=== PATIENT | female | born 1965 | race Caucasian/White ===

== ENCOUNTER 2016-06-04 07:07 | Emergency (ER) | payer BC ==
[2016-06-04 07:21] VITALS: BP 170/90
--- NOTE | 2016-06-04 08:06 | RAD ---
INDICATION: Left knee pain COMPARISON: None TECHNIQUE: AP, lateral, tunnel, and sunrise views were obtained. FINDINGS: There are no acute bony findings. There are several tiny ossific densities project into the joint space. Loose bodies are not excluded. IMPRESSION: NO ACUTE BONY CHANGE. POSSIBLE LOOSE BODIES.
--- NOTE | 2016-06-04 08:27 | UC ---
Vince Fletcher Matthew, scribed for GilbertoLito kincaid MD on 06/04/16 at 0755 . Knee Pain HPI - HPI Summary HPI Summary: Nurses Note: Left medial knee pain for "over a month". Patient states that when she stands up" I feel like there is a fluid mass on the side of my knee, and behind it." Pain upon initial standing and at bedtime, "it aches or throbbs". Patient supports behind the leg with a pillow. MD Note: Vital signs stable, BP noted at 170/90 pulse oxygen 98%, 5/10 left knee pain, throbbing, rare ETOH, non smoker, PMHx: HTN, lyme disease In Room Note: A 50 y/o presents to [facility] with gradually worsening left knee pain for months. The pain is rated 5/10 in severity and described as throbbing. Initially, in the morning the pain is located to the side of the knee and by the end of the day there is diffuse pain. She also notices localized fluid behind the knee by the end of the day. Her knees are unaffected by ambulating. The knee pain is worse by the end of the day. Her joints are also intermittent in pain from lyme disease. The patient has been seeing her PCP regularly and her BP has been well controlled there. FHx of HTN, CAD, and arthritis. - History of Current Complaint Chief Complaint: UCLowerExtremity Stated Complaint: KNEE COMPLAINT Time Seen by Provider: 06/04/16 07:12 Hx Obtained From: Patient Hx Last Menstrual Period: 05/30/16 ?: No Onset/Duration: Gradual Onset, Lasting Weeks, Still Present Severity Initially: Moderate Severity Currently: Moderate Location Of Injury: Left Knee Pain Intensity: 5 Pain Scale Used: 0-10 Numeric Character: Aching, Throbbing Associated Signs And Symptoms: Positive: Swelling Able to Bear Weight: Yes - Allergies/Home Medications Allergies/Adverse Reactions: Allergies Allergy/AdvReac Type Severity Reaction Status Date / Time cashews Allergy Severe Anaphylatic Uncoded 06/04/16 07:12 Shock PMH/Surg Hx/FS Hx/Imm Hx Endocrine History Of: Denies: Diabetes, Thyroid Disease Cardiovascular History Of: Reports: Hypertension Denies: Cardiac Disorders Respiratory History Of: Denies: COPD, Asthma GI/ History Of: Denies: Ulcer Cancer History Of: Denies: Breast Cancer - Surgical History Surgical History: Yes Surgery Procedure, Year, and Place: tubal ligation. T&A - Family History Known Family History: Positive: Cardiac Disease Family History: No FHx breast cancer - Social History Alcohol Use: Rare Substance Use Type: None Smoking Status (MU): Never Smoked Tobacco Have You Smoked in the Last Year: No - Immunization History Most Recent Influenza Vaccination: 2012 Most Recent Tetanus Shot: within five years Review of Systems Constitutional: Negative Skin: Negative Eyes: Negative ENT: Negative Respiratory: Negative Cardiovascular: Negative Gastrointestinal: Negative Genitourinary: Negative Motor: Negative Neurovascular: Negative Musculoskeletal: Arthralgia - Left Knee Pain Neurological: Negative Psychological: Negative All Other Systems Reviewed And Are Negative: Yes Physical Exam Triage Information Reviewed: Yes Appearance: Well-Appearing, No Pain Distress, Well-Nourished Vital Signs: Initial Vital Signs Temp 97.4 F 06/04/16 07:13 Pulse 85 06/04/16 07:13 Resp 16 06/04/16 07:13 BP 170/90 06/04/16 07:13 Pulse Ox 98 06/04/16 07:13 Vital Signs Reviewed: Yes Eyes: Positive: Conjunctiva Clear ENT: Positive: Hearing grossly normal, Pharynx normal, TMs normal. Negative: Muffled/hoarse voice Neck: Positive: Supple, Nontender Respiratory: Positive: Chest non-tender, Lungs clear, Normal breath sounds, No respiratory distress Cardiovascular: Positive: RRR, No Murmur Musculoskeletal: Positive: Other: - No redness, significant swelling, or pain over the left calf muscle; No gross instability of the left knee; Negative anterior drawer; MILD TENDERNESS OVER THE LEFT HAMSTRING TENDONS MEDIALLY, no obvious bakers cyst or swelling Neurological: Positive: Alert Psychological: Positive: Age Appropriate Behavior Skin Exam: Normal Skin: Negative: rashes Diagnostics - Radiology Left Knee XR Xray Interpretation: No Acute Changes - IMPRESSION: NO ACUTE BONY CHANGE. POSSIBLE LOOSE BODIES. Radiology Interpretation Completed By: Radiologist Knee Pain Course/Dx - Differential Dx/Diagnosis Differential Diagnosis/HQI/PQRI: Other - bakers cyst, knee sprain, tendonitis, bursitis Provider Diagnoses: Left Knee Sprain; Medial Hamstring Strain Discharge - Discharge Plan Condition: Stable Disposition: HOME Patient Education Materials: Knee Sprain (ED) Referrals: William Edwards MD [Primary Care Provider] - Additional Instructions: WE DISCUSSED: You have a sprain/strain of the soft tissue around your left knee and strain of the hamstring muscles on the inside of the knee. Warm moist heat in the morning; ice after use, during the day. Ibuprofen. Daniele wrap. Re check at any time for increased pain or disability. You may need further evaluation and treatment. The documentation as recorded by the Vince beatty Matthew accurately reflects the service I personally performed and the decisions made by me, Lito Thomas MD.
== END 2016-06-04 08:28 | disposition home or self-care (01) ==
LOC: UCEAST 07:07
DX: S83.92XA Sprain of unspecified site of left knee, initial encounter (principal); X58.XXXA Exposure to other specified factors, initial encounter; Y92.9 Unspecified place or not applicable
CPT/HCPCS: 99211; G0463

== ENCOUNTER 2017-09-10 07:03 | Emergency (ER) | payer BC ==
[2017-09-10 07:19] VITALS: BP 136/94
[2017-09-10] MEDS ORDERED: BSS OPTH.SOL* BTL ONE (07:20)
[2017-09-10] MEDS ORDERED: Fluorescein Sod TOPICAL 0.6* 0.6 MG TEST OPHTHALMIC ONE ×2 (07:20→07:39)
[2017-09-10] MEDS ORDERED: Tetracaine 0.5% OPTH.SOL 4 ML* 1 DROP BTL ONE (07:20)
[2017-09-10] MEDS ORDERED: Tetracaine 0.5% OPTH.SOL 4 ML* 1 DROP BTL RIGHT EYE ONE (07:39)
--- NOTE | 2017-09-10 08:19 | UC ---
Leslie Fletcher Gabriel, scribed for [facility] CenterLito MD on 09/10/17 at 0727 . Eye Complaint HPI - HPI Summary HPI Summary: This patient is a 52 year old F presenting to [facility] accompanied by her partner s /p getting hay in her eye yesterday at 1500. She states the pain was immediate but has been getting worse since. The patient rates the pain 4/10 in severity. Patient denies n/v/d and recent illness. Pt denies relevant past medical history. note: This patient does have a history of hypertension. Eye complaint. Vital signs stable, afebrile. Visit history noncontributory to present complaint. History positive for hypertension, lyme, and possible MRSA. Nurses note: pt states got hay in her right eye yesterday about 3pm and now painful and continues to water-states sl blurry d/t eyes watering visual acuity done 20/30 right and 20/25 left with glasses which pt wears all the time - History of Current Complaint Chief Complaint: UCEye Stated Complaint: EYE COMPLAINT Time Seen by Provider: 09/10/17 07:08 Hx Obtained From: Patient Hx Last Menstrual Period: 04/2017 Onset/Duration: Lasting Days - 1, Still Present Severity Initially: Mild Severity Currently: Moderate Pain Intensity: 4 Pain Scale Used: 0-10 Numeric Location of Injury: Sclera Associated Signs And Symptoms: Positive: Negative - n/v/d and recent illness - Allergies/Home Medications Allergies/Adverse Reactions: Allergies Allergy/AdvReac Type Severity Reaction Status Date / Time Penicillins Allergy Itching Verified 09/10/17 07:19 sulfamethoxazole Allergy Unknown Verified 09/10/17 07:20 [From Bactrim] Reaction Details trimethoprim [From Bactrim] Allergy Unknown Verified 09/10/17 07:20 Reaction Details cashews Allergy Severe Anaphylatic Uncoded 06/04/16 07:12 Shock penic Allergy Intermediate Itching Uncoded 09/10/17 07:19 PMH/Surg Hx/FS Hx/Imm Hx - Additional Past Medical History Additional PMH: lyme, Cardiovascular History: Hypertension Other History Of: Negative For: Hepatitis C - Surgical History Surgical History: Yes Surgery Procedure, Year, and Place: tubal ligation. 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 Negative: n/v/d and recent illness Physical Exam - Summary Physical Exam Summary: Appearance: The patient is well-appearing, is in no pain distress, and is well- nourished. Eyes: RIGHT EYE SHOWS DIFFUSE SCLERAL INJECTION WITHOUT PERILIMBIC INJECTION, CORNEA IS GROSSLY CLEAR WITHOUT DYE, THERE IS NO HYPHEMA, FUNDI BENIGN, POSITIVE PHOTOPHOBIA ENT: The hearing is grossly normal, the pharynx is normal, and the TMs are normal. There is no muffled or hoarse voice. Neck: The neck is supple and there is no lymphadenopathy. Respiratory: The chest is nontender. The lungs are clear, there are normal breath sounds, and there is no respiratory distress. Cardiovascular: Heart is regular rate and rhythm. There is no murmur. Abdomen: The abdomen is soft and nontender. There is no organomegaly. Bowel sounds: present Musculoskeletal: Strength is intact. The patient moves all extremities. Neurological: The patient is alert. Psychological: The patient displays age appropriate behavior Skin: Negative for rashes. Triage Information Reviewed: Yes Vital Signs: Initial Vital Signs Temp 97.9 F 09/10/17 07:08 Pulse 66 09/10/17 07:08 Resp 16 09/10/17 07:08 BP 136/94 09/10/17 07:08 Pulse Ox 98 09/10/17 07:08 Vital Signs Reviewed: Yes Procedures - Procedure Summary Procedure Summary: Fluorescence and tetracaine eye drops placed. Eye examination of the surface shows two tiny abrasions that are at approximately at 12 oclock. Each one is less than 1 millimeter, 1 is horizontal and the other is directly vertical to it. Exam of bulbar conjunctiva and eversion of the upper lid shows no foreign body Eye Complaint Course/Dx - Course Course Of Treatment: Pt with a mechanism and obvious abrasion of the right eye. No evidence of foreign body, patient will use azithromycin and call doctor Arleo tomorrow. - Differential Dx/Diagnosis Differential Diagnosis/HQI/PQRI: Corneal Abrasion, Foreign Body Provider Diagnoses: small corneal abrasion pf the right eye Discharge - Sign-Out/Discharge Documenting (check all that apply): Discharge/Admit/Transfer - Discharge Plan Condition: Stable Disposition: HOME Prescriptions: Erythromycin OPTH OINT* [Erythromycin 0.5% OPTH OINT*] 1 applic RIGHT EYE TID # 1 ophth.oint MDD every 2 hours Patient Education Materials: Corneal Abrasion (ED) Referrals: William Edwards MD [Primary Care Provider] - Additional Instructions: Your blood pressure reading today was 136/94. Follow-up with your primary care provider within 4 weeks for blood pressure readings and further evaluation. For discomfort: Take as needed for pain Ibuprofen 400-600mg PLUS acetaminophen 500mg - 1000mg every 8 hours. Maximum is 3 doses a day. If this dosage is required for more than 5 days, you should re-check with your doctor. PLEASE SEEK CARE AT THE EMERGENCY DEPARTMENT IF SYMPTOMS WORSEN OR IF NEW SYMPTOMS DEVELOP. WE DISCUSSED: 1. You have a small abrasion (scratch) to the cornea of your right eye. 2. Use ointment every 2 hours today while awake. 3. Call Dr. Martel for follow up tomorrow. Your pain should be decreasing and you should have no problem seeing. 4. Call us for any questions or concerns. - Billing Disposition and Condition Condition: STABLE Disposition: HOME The documentation as recorded by the Leslie beatty Gabriel accurately reflects the service I personally performed and the decisions made by me, Lito Thomas MD.
== END 2017-09-10 08:19 | disposition home or self-care (01) ==
LOC: UCEAST 07:03
DX: S05.01XA Injury of conjunctiva and corneal abrasion without foreign body, right eye, initial encounter (principal); X58.XXXA Exposure to other specified factors, initial encounter; Y93.9 Activity, unspecified; Y92.9 Unspecified place or not applicable; I10 Essential (primary) hypertension; Z88.0 Allergy status to penicillin; Z88.2 Allergy status to sulfonamides; Z91.018 Allergy to other foods; Z82.49 Family history of ischemic heart disease and other diseases of the circulatory system; Z80.3 Family history of malignant neoplasm of breast
CPT/HCPCS: 99212; A9270-GY; G0463

== ENCOUNTER 2017-12-23 13:13 | Observation (INO) | payer BC ==
--- OUTSIDE RECORDS SUMMARY | 2017-12-23 13:34 | XMS REPORT ---
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 Active Onset: 05/25/2012 Benign essential hypertension William Edwards M.D. Active Onset: 06/26/2012 Cough William Edwards M.D. Active Onset: 09/25/2012 Low back pain William Edwards M.D. Active Onset: 06/04/2013 Anxiety state William Edwards M.D. Active Onset: 09/03/2013 Contact dermatitis due to plants, Edis Ames M.D. Active except food Onset: 08/02/2014 Folliculitis William Edwards M.D. Active Onset: 08/05/2014 Eruption William Edwarsd M.D. Active Onset: 02/17/2015 Neck pain William Edwards M.D. Active Onset: 02/17/2015 Pain in thoracic spine William Edwards M.D. Active Onset: 02/17/2015 Gastroesophageal reflux disease William Edwards M.D. Active Onset: 02/17/2015 Polyarthropathy William Edwards M.D. Active Onset: 03/13/2015 Lyme arthritis William Edwards M.D. Active Onset: 03/31/2015 Lyme disease William Edwards M.D. Active Onset: 08/25/2015 Disorders of initiating and William Edwards M.D. Active maintaining sleep Onset: 01/04/2016 Myalgia William Edwards M.D. Active Onset: 09/20/2016 Anemia William Edwards M.D. Active Onset: 09/20/2016 Chronic fatigue syndrome William Edwards M.D. Active Onset: 09/25/2017 Arthralgia of the upper arm William Edwards M.D. Active Onset: 09/25/2017 Knee pain William Edwards M.D. Active Onset: 10/17/2017 Lumbar radiculopathy William Edwards M.D. Active Family History Date Family Member(s) Problem(s) Comments Text Input parents with dm no sudden Social History Type Date Description Comments Marital Status Patient is Living Situation Lives with spouse and daughters General Works as [employer] Cigarette Use Nonsmoker Smoking Patient has never smoked Allergies, Adverse Reactions, Alerts Date Description Reaction Status Severity Comments 05/28/2010 Cashews active 09/30/2014 Bactrim active Rash 08/19/2016 Penicillin active 05/25/2012 NKDA inactive Medications Medication Date Status Form Strength Qnty SIG Indications Ordering Provider Irbesartan 12/20 Active Tablets 75mg 30tabs 1 by I10 Noemí C. /2017 mouth Rob, every DIE SETTER day Naproxen 10/17 Active Tablets 500mg 60tabs take 1 M54.5 William . tablet Midura, by mouth M.DSyd two times daily as needed for pain Nortrel Active Tablets 1-35mg-mc 1 po qd Unknown /0000 g Physical Therapy 10/17 Hx treatmen M54.5 William T. t and Jerry, - evaluati MEliazar 12/19 on low /2018 back pain with radiculo tono Meloxicam 09/25 Hx Tablets 7.5mg 30tabs 1 by M54.5 William Witt mouth Midura, - every M.D. 10/17 day pain and inflamat ion take with food. 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 Minocycline HCL 11/19 Hx Capsules 100mg 60caps 1 by A69.23 William Witt mouth Midura, - twice a M.D. Meloxicam 09/21 Hx Tablets 7.5mg 30tabs 1 by A69.23 William T. mouth Midura, - every M.D. 11/19 day pain and inflamat ion take with food. Amoxicillin 08/24 Hx Tablets 875mg 90tabs 1 by A69.22 William Etienne. mouth Midura, - three M.D. 09/21 times day Trazodone HCL 08/24 Hx Tablets 50mg 60tabs 1-2 F51.01 William Witt tablet Midura, - at M.D. 08/27 bedtime as needed for sleep Hydroxychloroqui 07/27 Hx Tablets 200mg 60tabs 1 by A69.23 William Witt ne Sulfate mouth Midura, - twice a M.D. Atovaquone-Progu 05/25 Hx Tablets 250-100mg 30tabs 1 by William Witt kunal HCL mouth Midura, - every M.D. Doxycycline 05/12 Hx Capsules 100mg 60caps 1 by William Witt Hyclate mouth Midura, - twice a M.D. /2015 Azithromycin 04/28 Hx Tablets 500mg 30tabs 1 by A69.22 William TSyd mouth Midura, - every M.D. /2015 Fluconazole 04/28 Hx Tablets 150mg 4tabs 1 by A69.22 William T. mouth Midura, - for M.D. 06/29 infectio n. may repeat Weekly Cefuroxime 03/31 Hx Tablets 250mg 60tabs 1 by A69.29 William Dillard. Axetil mouth Midura, - twice a M.D. Doxycycline 02/26 Hx Capsules 100mg 60caps 1 by William Dillard. Hyclate mouth Midura, - twice a M.D. Doxycycline 09/30 Hx Capsules 100mg 20caps 1 by 704.8 William T. Hyclate mouth Midura, - twice a M.D. Fluocinonide 08/18 Hx Solution 0.05% 60cc apply to William T. affected Midura, - areas of M.D. 09/30 scalp every day as needed Cephalexin 08/05 Hx Tablets 500mg 20tabs 1 by 782.1 William T. mouth Midura, - twice a M.D. Hydroxyzine HCL 08/05 Hx Tablets 25mg 40tabs take one 782.1 William T. to two Midura, - tablets M.D. 09/30 by mouth three times daily as needed for itching Sulfamethoxazole 08/02 Hx Tablets 800-160mg 20tabs 1 by 704.8 William T. /Trimethoprim mouth Midura, - twice a M.D. Prednisone 08/02 Hx Tablets 20mg 11tabs 2 by 704.8 William T. mouth Midura, - every M.D. 09/30 day x 3 days then 1 by mouth every day x 3 days then 1/2 every day x 4 Metoprolol 12/16 Hx Tablets 25mg 60tabs Take One 401.1 William T. Succinate ER ER 24HR Tablet Midura, - By Mouth M.D. 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 /2013 days, Darlow, - then 3 M.D. 09/10 po x 2 days, then 2 po x 2 days,the n 1 po x 1 day Fexofenadine HCL 09/03 Hx Tablets 180mg 7tabs 1 po qd 692.6 Edis A. while on Darlow, - predniso M.D. 09/10 Ranitidine HCL 09/03 Hx Capsules 150mg 7caps 1 po qd 692.6 Edis A. while on Darlow, - predniso M.D. 09/10 Alprazolam 06/04 Hx Tablets 0.25mg 60tabs 1-2 300.00 William T. tabs po Midura, - bid prn M.D. 09/03 Trazodone HCL 06/04 Hx Tablets 50mg 40tabs 1-2 300.00 William T. tablet Midura, - hs prn M.D. 09/03 sleep Amoxicillin/Pota 07/05 Hx Tablets 875-125mg 20tabs 1 po bid William T. ssi Midura, Clavulanate - M.D. 09/25 Valacyclovir HCL 05/26 Hx Tablets 1gm 30tabs 1 po tid 053.29 Kelly LSyd /2012 x 10 Génesis, - day. M.D. 06/26 Zovirax 05/26 Hx Cream 5% 5gm apply 5 053.29 Kelly L. /2012 times Génesis, - daily M.D. 06/26 to affected area Toprol XL 05/25 Hx Tablets 25mg 60tabs 1 po bid 401.1 William T. /2012 ER 24HR Midjoanne, - M.D. 12/16 Control 05/01 Hx William T. Midura, - M.D. 05/25 Topiramate 05/01 Hx Tablets 50mg 60tabs take 1-2 784.0 William T. /2012 tablets Midura, - at M.D. 05/25 bedtime for headache as Needed. Fluconazole 10/25 Hx Tablets 150mg 4tabs 1 po q Myra week x 4 mickey Magdisonal, - weeks M.D. 05/01 Nabumetone 05/28 Hx Tablets 500mg 30tabs 1 po bid 729.5 Edis A. Kwaku - Amanda 05/01 Soma 10/08 Hx Tablets 1 po qhs prn Medicine - muscle [facility] 12/08 spasm Of Vicodin 10/08 Hx Tablets 5-500mg 2 po every Medicine - 4-6 Associates 12/08 hours Of prn. Ultram 10/08 Hx Tablets 50mg 1 po q4-6 Medicine - hours Associates 12/08 prn pain Of Clarithromycin 10/08 Hx Tablets 500mg 20tabs 1 bid William T. with Jerry, - food M.DSyd 12/08 Requip 03/12 Hx Tablets 0.25mg 90tabs 2 po qhs 333.94 Edis A. or as Kwaku - directed M.DSyd 05/28 Tessalon 02/04 Hx Capsules 200mg 30caps 1 tid prn Loren, - cough Afnp-C 02/14 Cipro 12/30 Hx Tablets 250mg 6tabs 1 po bid 599.0 Loren, - Afnp-C 01/02 olanzapine 06/03 Hx Tablets 2.5mg 10tabs 1 po 784.0 Edis A. qday prn Kwaku, - headache M.D. 09/15 Prednisone 06/03 Hx Tablets 10mg 19tabs 4 po x 2 784.0 Edis A. days, Kwaku, - then 3 M.D. 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 Augmentin 02/13 Hx Tablets 500mg 20tabs 1 PO bid 784.0 Heide With Alexandro, - Food X Afnp-C 02/23 10 Days /2006 Keflex 07/21 Hx 500mg 20units 1 po bid William Witt Valeriano Edwards M.D. 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 Soln Affected Kwaku, - Eye qid M.D. 06/27 5 X Days Amoxicillin 08/18 Hx 250mg 30units 1 PO tid Troy Khoury Valeriano Rasmussen M.D. 08/28 Entex Pse 08/18 Hx 30units 1 bid Troy Khoury prn Valeriano Rasmussen Congesvicky Patel 09/01 Amoxicillin 01/27 Hx Tablets 500mg 30tabs 1 Tablet 3 Times Alexandro, - Daily Afnp-C 02/06 Entex Pse 01/27 Hx 20units 1 bid prn Alexandro, - Congesti Afnp-C 02/06 Keflex 07/09 Hx 5Oomg 20units 1 PO bid Jesusefal, - CHEMICAL PRODUCTION TECHNICIAN-F 07/19 Entex LA 07/09 Hx 20units 1 PO bid Jesusefal, - CHEMICAL PRODUCTION TECHNICIAN-F 07/14 Ortho-Novum 10/23 Hx 0units Sheldon F. Valeriano Leyva M.D. 08/18 Vitamin D3 Hx Capsules 1 by Unknown /0000 mouth - every Immunizations CPT Code Status Date Vaccine Reaction Lot # 80187 Given 12/26/2016 Influenza Vac, Quadrivalent, [place] [address] Given 02/02/2016 Influenza Vac, Quadrivalent, [id number] [id number] Given 01/20/2014 DO Not Use Split Influenza Virus Vaccine 52320 Given 02/01/2013 DO Not Use Split Influenza Virus Vaccine 19127 Given 01/04/2012 DO Not Use Split Influenza Virus Vaccine 25417 Given 06/14/2011 Tdap Tetanus, W Pertussis no reaction noted [id number] Given 02/12/1999 Td Immunization, For Use In Individuals 7 Years Or Older Vital Signs Date Vital Result Comment 12/20/2017 BP Systolic 148 mmHg BP Diastolic 76 mmHg Heart Rate 90 /min Body Temperature 99.0 F Respiratory Rate 16 /min Height 66 inches 5'6" Weight 207.00 lb BMI (Body Mass Index) 33.4 kg/m2 10/17/2017 BP Systolic 126 mmHg BP Diastolic 78 mmHg Heart Rate 88 /min Body Temperature 98.6 F Respiratory Rate 16 /min Height 66 inches 5'6" Weight 198.50 lb BMI (Body Mass Index) 32.0 kg/m2 09/25/2017 BP Systolic 128 mmHg BP Diastolic 70 mmHg Heart Rate 66 /min Body Temperature 97.9 F Respiratory Rate 16 /min Height 66 inches 5'6" Weight 199.25 lb BMI (Body Mass Index) 32.2 kg/m2 09/20/2016 BP Systolic 138 mmHg BP Diastolic 80 mmHg Heart Rate 84 /min Body Temperature 99.3 F Respiratory Rate 16 /min Height 66 inches 5'6" Weight 206.12 lb BMI (Body Mass Index) 33.3 kg/m2 08/27/2016 BP Systolic 130 mmHg BP Diastolic 80 mmHg Heart Rate 68 /min Body Temperature 98.8 F Height 66 inches 5'6" Weight 206.00 lb BMI (Body Mass Index) 33.2 kg/m2 08/19/2016 BP Systolic 120 mmHg BP Diastolic 80 mmHg Heart Rate 72 /min Body Temperature 98.1 F Respiratory Rate 18 /min Height 66 inches 5'6" Weight 210.00 lb BMI (Body Mass Index) 33.9 kg/m2 03/15/2016 BP Systolic 154 mmHg BP Diastolic 94 mmHg Heart Rate 84 /min Body Temperature 99.3 F Respiratory Rate 16 /min Height 66 inches 5'6" Weight 218.50 lb BMI (Body Mass Index) 35.3 kg/m2 02/02/2016 BP Systolic 136 mmHg BP Diastolic 80 mmHg Heart Rate 78 /min Body Temperature 97.9 F Respiratory Rate 16 /min Height 66 inches 5'6" 01/04/2016 BP Systolic 152 mmHg BP Diastolic 88 mmHg Heart Rate 78 /min Body Temperature 99.1 F Respiratory Rate 16 /min Height 66 inches 5'6" Weight 214.12 lb BMI (Body Mass Index) 34.6 kg/m2 11/20/2015 BP Systolic 132 mmHg BP Diastolic 74 mmHg Heart Rate 78 /min Body Temperature 97.7 F Respiratory Rate 16 /min Height 66 inches 5'6" Weight 208.25 lb BMI (Body Mass Index) 33.6 kg/m2 09/22/2015 BP Systolic 134 mmHg BP Diastolic 80 mmHg Heart Rate 62 /min Body Temperature 97.8 F Height 66 inches 5'6" Weight 211.00 lb BMI (Body Mass Index) 34.1 kg/m2 08/25/2015 BP Systolic 126 mmHg BP Diastolic 80 mmHg Heart Rate 64 /min Body Temperature 97.4 F Respiratory Rate 18 /min Height 66 inches 5'6" Weight 215.00 lb BMI (Body Mass Index) 34.7 kg/m2 07/28/2015 BP Systolic 126 mmHg BP Diastolic 90 mmHg Heart Rate 64 /min Body Temperature 97.8 F Respiratory Rate 16 /min Height 66 inches 5'6" Weight 216.00 lb BMI (Body Mass Index) 34.9 kg/m2 06/30/2015 BP Systolic 130 mmHg BP Diastolic 90 mmHg Heart Rate 64 /min Body Temperature 98.3 F Respiratory Rate 18 /min Height 66 inches 5'6" Weight 214.00 lb BMI (Body Mass Index) 34.5 kg/m2 05/25/2015 BP Systolic 140 mmHg BP Diastolic 86 mmHg Heart Rate 78 /min Body Temperature 98.2 F Respiratory Rate 16 /min Height 66 inches 5'6" Weight 217.12 lb BMI (Body Mass Index) 35.0 kg/m2 04/28/2015 BP Systolic 146 mmHg BP Diastolic 88 mmHg Heart Rate 78 /min Body Temperature 97.7 F Respiratory Rate 16 /min Height 66 inches 5'6" Weight 216.12 lb BMI (Body Mass Index) 34.9 kg/m2 03/31/2015 BP Systolic 146 mmHg BP Diastolic 80 mmHg Heart Rate 78 /min Body Temperature 98.7 F Respiratory Rate 16 /min Height 66 inches 5'6" Weight 213.12 lb BMI (Body Mass Index) 34.4 kg/m2 03/13/2015 BP Systolic 136 mmHg BP Diastolic 80 mmHg Heart Rate 78 /min Body Temperature 98.8 F Respiratory Rate 16 /min Height 66 inches 5'6" Weight 212.50 lb BMI (Body Mass Index) 34.3 kg/m2 02/17/2015 BP Systolic 130 mmHg BP Diastolic 82 mmHg Heart Rate 88 /min Body Temperature 99.0 F Respiratory Rate 16 /min Height 66 inches 5'6" Weight 213.38 lb BMI (Body Mass Index) 34.4 kg/m2 09/30/2014 BP Systolic 116 mmHg BP Diastolic 74 mmHg Heart Rate 84 /min Body Temperature 99.1 F Respiratory Rate 16 /min Height 66 inches 5'6" Weight 213.38 lb BMI (Body Mass Index) 34.4 kg/m2 08/05/2014 BP Systolic 124 mmHg BP Diastolic 76 mmHg Heart Rate 90 /min Body Temperature 99.1 F Respiratory Rate 16 /min Height 66 inches 5'6" 08/02/2014 BP Systolic 134 mmHg BP Diastolic 74 mmHg Heart Rate 72 /min Body Temperature 99.1 F Respiratory Rate 16 /min Height 66 inches 5'6" Weight 220.50 lb BMI (Body Mass Index) 35.6 kg/m2 10/15/2013 BP Systolic 146 mmHg BP Diastolic 84 mmHg Heart Rate 90 /min Body Temperature 99.5 F Respiratory Rate 16 /min Height 66 inches 5'6" Weight 224.00 lb BMI (Body Mass Index) 36.2 kg/m2 09/03/2013 BP Systolic 132 mmHg BP Diastolic 78 mmHg Heart Rate 72 /min Body Temperature 99.4 F Respiratory Rate 16 /min Height 66 inches 5'6" Weight 212.00 lb BMI (Body Mass Index) 34.2 kg/m2 06/04/2013 BP Systolic 120 mmHg BP Diastolic 80 mmHg Heart Rate 74 /min Body Temperature 98.1 F Respiratory Rate 14 /min Height 66 inches 5'6" Weight 224.00 lb BMI (Body Mass Index) 36.2 kg/m2 05/13/2013 BP Systolic 118 mmHg BP Diastolic 78 mmHg Heart Rate 80 /min Body Temperature 98.8 F Respiratory Rate 16 /min Height 66 inches 5'6" Weight 221.00 lb BMI (Body Mass Index) 35.7 kg/m2 03/26/2013 BP Systolic 140 mmHg BP Diastolic 94 mmHg Heart Rate 78 /min Body Temperature 97.7 F Respiratory Rate 17 /min Height 66 inches 5'6" Weight 220.00 lb BMI (Body Mass Index) 35.5 kg/m2 09/25/2012 BP Systolic 118 mmHg BP Diastolic 70 mmHg Heart Rate 84 /min Respiratory Rate 18 /min Height 66 inches 5'6" Weight 213.00 lb BMI (Body Mass Index) 34.4 kg/m2 06/26/2012 BP Systolic 126 mmHg BP Diastolic 72 mmHg Heart Rate 76 /min Body Temperature 98.0 F Respiratory Rate 18 /min Height 66 inches 5'6" Weight 219.00 lb BMI (Body Mass Index) 35.3 kg/m2 05/26/2012 BP Systolic 130 mmHg BP Diastolic 90 mmHg Heart Rate 78 /min Body Temperature 98.4 F Respiratory Rate 16 /min Height 66 inches 5'6" Weight 222.00 lb BMI (Body Mass Index) 35.8 kg/m2 05/25/2012 BP Systolic 148 mmHg BP Diastolic 84 mmHg Heart Rate 78 /min Body Temperature 99.2 F Respiratory Rate 16 /min Height 66 inches 5'6" Weight 222.50 lb BMI (Body Mass Index) 35.9 kg/m2 05/01/2012 BP Systolic 140 mmHg BP Diastolic 90 mmHg Heart Rate 76 /min Body Temperature 98.5 F Height 66 inches 5'6" Weight 219.00 lb BMI (Body Mass Index) 35.3 kg/m2 10/25/2010 Heart Rate 60 /min Body Temperature 98.4 F Height 66 inches 5'6" Weight 219.00 lb BMI (Body Mass Index) 35.3 kg/m2 05/28/2010 BP Systolic 128 mmHg BP Diastolic 72 mmHg Heart Rate 66 /min Body Temperature 99.5 F Respiratory Rate 16 /min Height 66 inches 5'6" Weight 219.00 lb BMI (Body Mass Index) 35.3 kg/m2 12/08/2009 BP Systolic 134 mmHg BP Diastolic 60 mmHg Heart Rate 72 /min Body Temperature 98.9 F Respiratory Rate 16 /min Height 66 inches 5'6" Weight 213.00 lb BMI (Body Mass Index) 34.4 kg/m2 10/08/2009 BP Systolic 126 mmHg BP Diastolic 80 mmHg Heart Rate 84 /min Body Temperature 99.0 F Height 66 inches 5'6" Weight 212.00 lb BMI (Body Mass Index) 34.2 kg/m2 09/15/2009 BP Systolic 126 mmHg BP Diastolic 70 mmHg Heart Rate 84 /min Height 66 inches 5'6" Weight 213.00 lb BMI (Body Mass Index) 34.4 kg/m2 06/10/2009 BP Systolic 130 mmHg BP Diastolic 70 mmHg Heart Rate 72 /min Body Temperature 97.8 F Respiratory Rate 16 /min Height 66 inches 5'6" Weight 229.00 lb BMI (Body Mass Index) 37.0 kg/m2 04/15/2009 BP Systolic 130 mmHg BP Diastolic 72 mmHg Heart Rate 96 /min Body Temperature 99.1 F Respiratory Rate 20 /min Weight 230.00 lb 03/12/2009 BP Systolic 128 mmHg BP Diastolic 80 mmHg Heart Rate 84 /min Body Temperature 98.7 F Respiratory Rate 16 /min Weight 226.00 lb 02/04/2009 BP Systolic 114 mmHg BP Diastolic 60 mmHg Body Temperature 98.6 F Respiratory Rate 18 /min Height 66 inches 5'6" Weight 225.00 lb BMI (Body Mass Index) 36.3 kg/m2 12/30/2008 BP Systolic 110 mmHg BP Diastolic 70 mmHg Heart Rate 60 /min Body Temperature 99.0 F Weight 226.00 lb 06/03/2008 BP Systolic 130 mmHg BP Diastolic 80 mmHg Heart Rate 88 /min Body Temperature 98.5 F Respiratory Rate 16 /min Weight 237.00 lb 05/26/2008 BP Systolic 110 mmHg BP Diastolic 60 mmHg Heart Rate 76 /min Body Temperature 98.8 F Weight 239.00 lb 09/12/2007 BP Systolic 108 mmHg BP Diastolic 60 mmHg Heart Rate 80 /min Body Temperature 99.4 F Height 66 inches 5'6" Weight 239.00 lb BMI (Body Mass Index) 38.6 kg/m2 06/13/2007 BP Systolic 118 mmHg BP Diastolic 72 mmHg Heart Rate 80 /min Height 66 inches 5'6" Weight 238.00 lb BMI (Body Mass Index) 38.4 kg/m2 05/08/2007 BP Systolic 124 mmHg BP Diastolic 70 mmHg Heart Rate 72 /min Height 66 inches 5'6" Weight 234.00 lb BMI (Body Mass Index) 37.8 kg/m2 03/19/2007 BP Systolic 134 mmHg BP Diastolic 74 mmHg Heart Rate 88 /min Body Temperature 98.9 F Height 66 inches 5'6" Weight 234.00 lb BMI (Body Mass Index) 37.8 kg/m2 02/13/2007 BP Systolic 130 mmHg BP Diastolic 80 mmHg Heart Rate 88 /min Body Temperature 97.7 F Height 66 inches 5'6" Weight 237.00 lb BMI (Body Mass Index) 38.2 kg/m2 05/30/2005 BP Systolic 120 mmHg BP Diastolic 82 mmHg Heart Rate 68 /min Body Temperature 67.6 F Height 66 inches 5'6" 07/21/2004 BP Systolic 126 mmHg BP Diastolic 72 mmHg Heart Rate 72 /min Body Temperature 98.9 F Height 66 inches 5'6" Weight 232.00 lb BMI (Body Mass Index) 37.4 kg/m2 08/26/2003 BP Systolic 124 mmHg BP Diastolic 82 mmHg Heart Rate 88 /min Height 66 inches 5'6" Weight 236.00 lb BMI (Body Mass Index) 38.1 kg/m2 02/19/2003 BP Systolic 116 mmHg BP Diastolic 80 mmHg Heart Rate 76 /min Body Temperature 97.3 F Oral Height 66 inches 5'6" Weight 231.00 lb BMI (Body Mass Index) 37.3 kg/m2 01/13/2003 BP Systolic 128 mmHg BP Diastolic 76 mmHg Heart Rate 92 /min Body Temperature 98.2 F Height 66 inches 5'6" Weight 236.00 lb BMI (Body Mass Index) 38.1 kg/m2 06/20/2002 BP Systolic 130 mmHg BP Diastolic 80 mmHg Body Temperature 97.3 F Height 66 inches 5'6" 04/23/2002 BP Systolic 114 mmHg BP Diastolic 80 mmHg Heart Rate 80 /min Height 66 inches 5'6" Weight 240.00 lb BMI (Body Mass Index) 38.7 kg/m2 05/31/2000 BP Systolic 102 mmHg BP Diastolic 60 mmHg Body Temperature 99.2 F Height 66 inches 5'6" Weight 234.00 lb BMI (Body Mass Index) 37.8 kg/m2 02/16/1999 BP Systolic 120 mmHg LG Cuff BP Diastolic 70 mmHg LG Cuff Height 66 inches 5'6" Weight 219.00 lb BMI (Body Mass Index) 35.3 kg/m2 11/16/1998 BP Systolic 110 mmHg LG Cuff BP Diastolic 80 mmHg LG Cuff Weight 211.00 lb 08/21/1998 Body Temperature 98.0 F 08/18/1998 Body Temperature 97.0 F Weight 206.00 lb 01/27/1998 BP Systolic 108 mmHg BP Diastolic 60 mmHg Body Temperature 97.1 F Weight 207.50 lb 07/09/1997 Weight 210.00 lb Results Test Date Test Result H/L Range Note Comprehensive Metabolic Prof 09/25/2017 Sodium 134 mEq/L 134-149 Potassium 4.1 mEq/L 3.6-5.5 Chloride 98 mEq/L 94-112 Carbon Dioxide 25 mEq/L 21-32 Glucose 88 mg/dL 70-105 BUN 14 mg/dL 6-26 Creatinine 1.0 mg/dL 0.6-1.4 BUN/Creat Ratio 14.0 CALC 8.0-36.0 Calcium 9.4 mg/dL 8.6-10.2 Total Protein 6.4 g/dL 6.4-8.3 Albumin 4.0 g/dL 3.8-5.5 Globulin 2.4 g/dL 2.0-4.8 A/G Ratio 1.7 CALC 0.6-2.3 Alk. Phosphatase 55 U/L 30-110 Alt (SGPT) 18 U/L 7-35 Ast (Sgot) 21 U/L 5-34 Total Bilirubin 0.5 mg/dL 0.2-1.3 GFR Non- >60 ml/min/1.73m^ >=60 GFR >60 ml/min/1.73m^ >=60 Laboratory test finding 09/25/2017 C-Reactive Protein, Quant 0.6 mg/L 0.0 -4.9 1 CBC Electronic ([facility]) 09/25/2017 WBC 6.55 4.0-10.0 RBC 4.49 3.93-6.0 Hemoglobin ([facility]/CMC/CTX) 10.9 g/dL Low 12.0-17.0 Hematocrit ([facility]/CMC/CTX) 33.6 % Low 35.0-50.0 Mean Corpuscular Vol 74.8 fL Low 80-95 Mean Corpuscular Hemoglobin 24.3 pg Low 25.6-32.2 Mean Corpuscular Hemo Concen 32.4 g/dL 32.2-36.0 Platelets 302 10^3/ul 163-400 RDW-CV 15.2 High 11.6-14.4 Mean Platelet Volume 9.7 fL 9.4-12.4 Absolute Neutrophils BLD 3.76 1.56-6.13 Absolute Lymphocytes 2.14 1.18-3.74 Absolute Monocytes BLD Auto 0.50 0.24-0.82 Absolute Eos Blood 0.1 0.04-0.54 Absolute Basophils 0.04 0.01-0.08 Neutrophil % 57.4 34.0-70.0 Lymph% 32.7 % 20.0-52.0 Monocytes % 7.6 % 5.0-12.0 Eos % 1.5 % 0.7-7.0 Basophil% 0.06 % Low 0.1-1.2 CBC Electronic ([facility]) 03/24/2017 WBC 7.8 3.6-9.6 RBC 4.71 3.90-5.70 Hemoglobin ([facility]/CMC/CTX) 10.7 g/dL Low 12.1 - 17.2 Hematocrit ([facility]/CMC/CTX) 33.1 % Low 36.1 - 50.3 Platelets 379 10^3/ul 150-400 Lymph% 37.3 % 17.0-48.0 Mixed% 5.2 Neutrophils % 57.5 Mean Corpuscular Vol 70 Low 82.2-97.4 Mean Corpuscular Hemoglobin 22.7 Low 27.6-33.3 Mean Corpuscular Hemo Concen 32.2 32.0-36.0 RDW 15.1 High 11.6-13.7 Mean Platelet Volume 7.0 5.5-11.0 Laboratory test finding 11/02/2016 Surgical Interface SEE RESULT BELOW 2 Order Laboratory test finding 11/02/2016 Clotest SEE RESULT BELOW 3 Laboratory test finding 10/12/2016 Serum Iron 66 g/dL 60-150 Complete Blood Count 10/12/2016 WBC 6.2 x10^3/UL 3.6-9.6 RBC 5.01 x10^6/UL 3.90-5.70 HGB 10.7 g/dL Low 12.1-17.2 4 HCT 34 % Low 36-50 5 MCV 69.0 fL Low 82.2-97.4 6 MCH 21.4 pg Low 27.6-33.3 MCHC 31.1 g/dL Low 33.0-35.5 RDW 19.5 % High 11.6-13.7 PLT 430 x10^3/UL High 150-400 MPV 7.9 fL 7.4-10.4 Gran # 3.6 x10^3/UL 1.5-7.2 Lymph# 2.3 x10^3/UL 0.7-4.9 [place]# 0.3 x10^3/UL 0.1-0.9 Gran % 57.3 % 42.2-75.2 Lymph % 37.7 % 20.5-51.1 [place]% 5.0 % 1.7-9.3 Comprehensive Metabolic Prof 08/27/2016 Sodium 138 mEq/L 134-149 Potassium 4.9 mEq/L 3.6-5.5 Chloride 101 mEq/L 94-112 Carbon Dioxide 21 mEq/L 21-32 Glucose 105 mg/dL 70-105 BUN 16 mg/dL 6-26 Creatinine 0.8 mg/dL 0.6-1.4 BUN/Creat Ratio 20.0 CALC 8.0-36.0 Calcium 9.4 mg/dL 8.6-10.2 Total Protein 6.4 g/dL 6.4-8.3 Albumin 4.0 g/dL 3.8-5.5 Globulin 2.4 g/dL 2.0-4.8 A/G Ratio 1.7 CALC 0.6-2.3 Alk. Phosphatase 62 U/L 30-110 Alt (SGPT) 19 U/L 7-35 Ast (Sgot) 21 U/L 5-34 Total Bilirubin 0.4 mg/dL 0.2-1.3 GFR Non- >60 ml/min/1.73m^ >=60 GFR >60 ml/min/1.73m^ >=60 Laboratory test finding 08/27/2016 Free T4 0.85 ng/dL 0.75-1.54 TSH 1.55 mIU/L 0.50-6.00 Ferritin <3 ng/mL Low 15-200 7 Lipid Profile 08/27/2016 Cholesterol 239 mg/dL High 120-200 Triglycerides 150 mg/dL 30-200 HDL Cholesterol 76 mg/dL 30-85 LDL (Calculated) 133 CALC High 0-129 VLDL Cholesterol 30 mg/dL 0-50 HDL Risk Factor 3.1 CALC 0.0-4.4 Iron And Tibc 08/27/2016 Iron Bind.Cap.(Tibc) 549 g/dL High 250-450 8 Uibc 528 g/dL High 131-425 8 Iron, Serum 21 g/dL Low 27-159 8 Iron Saturation 4 % Low 15-55 8 Laboratory test finding 08/27/2016 C-Reactive Protein, Quant 1.2 mg/L 0.0 -4.9 8 Laboratory test finding 08/27/2016 Hemoglobin A1c (Fma) 5.7 % 4.1-5.7 CBC Electronic (Fma) 08/27/2016 WBC 4.8 3.6-9.6 RBC 4.70 3.90-5.70 Hemoglobin (Fma/CMC/CTX) 9.6 g/dL Low 12.1 - 17.2 Hematocrit (Fma/CMC/CTX) 30.7 % Low 36.1 - 50.3 Platelets 407 10^3/ul High 150-400 Lymph% 33.3 % 17.0-48.0 Mixed% 6.7 Neutrophils % 60.0 Mean Corpuscular Vol 65 Low 82.2-97.4 Mean Corpuscular Hemoglobin 20.4 Low 27.6-33.3 Mean Corpuscular Hemo Concen 31.4 Low 32.0-36.0 RDW 16.4 High 11.6-13.7 Mean Platelet Volume 7.0 5.5-11.0 Laboratory test finding 02/17/2015 C-Reactive Protein, Quant 5.2 mg/L High 0.0-4.9 9 Lyme, Western Blot, Serum 02/17/2015 IgG P93 Ab. Absent 9 IgG P66 Ab. Absent 9 IgG P58 Ab. Present 9 IgG P45 Ab. Absent 9 IgG P41 Ab. Present 9 IgG P39 Ab. Absent 9 IgG P30 Ab. Absent 9 IgG P28 Ab. Absent 9 IgG P23 Ab. Absent 9 IgG P18 Ab. Absent 9 Lyme IgG WB Interp. Negative 9, 10 IgM P41 Ab. Absent 9 IgM P39 Ab. Absent 9 IgM P23 Ab. Present 9 Lyme IgM WB Interp. Negative , 11 Laboratory test finding 02/17/2015 Antinuclear Antibodies Negative Negative 9 Direct Comprehensive Metabolic 09/30/2014 Sodium 139 mEq/L 134-149 Prof Potassium 5.0 mEq/L 3.6-5.5 Chloride 105 mEq/L 94-112 Carbon Dioxide 23 mEq/L 21-32 Glucose 97 mg/dL 70-105 BUN 18 mg/dL 6-26 Creatinine 0.9 mg/dL 0.6-1.4 BUN/Creat Ratio 20.0 CALC 8.0-36.0 Calcium 9.8 mg/dL 8.6-10.2 Total Protein 7.1 g/dL 6.4-8.3 Albumin 4.3 g/dL 3.8-5.5 Globulin 2.8 g/dL 2.0-4.8 A/G Ratio 1.5 CALC 0.6-2.3 Alk. Phosphatase 52 U/L 30-110 Alt (SGPT) 15 U/L 7-35 Ast (Sgot) 19 U/L 5-34 Total Bilirubin 0.4 mg/dL 0.2-1.3 Laboratory test finding 09/30/2014 C-Reactive Protein 8.2 mg/L High 0.0- 5.0 12 CBC Electronic ([facility]) 09/30/2014 WBC 6.0 3.6-9.6 RBC 4.84 3.90-5.70 Hemoglobin (Fma/CMC/CTX) 13.9 g/dL 12.1 - 17.2 Hematocrit (a/CMC/CTX) 42.0 % 36.1 - 50.3 Platelets 309 10^3/ul 150-400 Lymph% 36.4 % 17.0-48.0 Mixed% 5.2 Neutrophils % 58.4 Mean Corpuscular Vol 87 82.2-97.4 Mean Corpuscular Hemoglobin 28.8 27.6-33.3 Mean Corpuscular Hemo Concen 33.2 32.0-36.0 RDW 12.8 11.6-13.7 Mean Platelet Volume 6.9 5.5-11.0 Wound Culture 10/15/2013 Wound Culture Mixed skin sulma <SEE NOTE> 13 .Gram Stain Additional NO EPI, NO WBC, <SEE NOTE> 14 Comp Metabolic Panel 09/15/2011 Sodium 135 mmol/L 135-145 Potassium 4.1 mmol/L 3.5-5.0 Chloride 102 mmol/L 101-111 Co2 (Carbon Dioxide) 26.0 mmol/L 22-32 Anion Gap 7.0 mmol/L 2-11 15 Glucose 107 mg/dL High 70-100 BUN 9 mg/dL 6-24 Creatinine 0.8 mg/dL 0.50-1.40 One Over Creatinine 1.25 BUN/Creatinine Ratio 11.3 8-20 Calcium 9.4 mg/dL 8.1-9.9 Total Protein 6.7 GM/DL 6.2-8.1 Albumin 3.5 GM/DL Low 3.6-5.4 Globulin 3.2 GM/DL 2-4 Albumin/Globulin Ratio 1.1 1-3 Bilirubin Total 0.6 mg/dL 0.4-1.5 16 Alkaline Phosphatase 69 U/L 30-110 Alt (SGPT) 18 U/L 14-54 Ast (Sgot) 16 U/L 12-42 eGFR Non- 77.6 > 60 eGFR 99.8 > 60 17 Urinalysis W/Microscopic 09/15/2011 Ua Color YELLOW Yellow Appearance-Urine CLEAR Clear Specific [place]-Ur 1.015 1.010-1.030 Esterase-Urine 2+ Negative Nitrite NEGATIVE Negative Jpzulfsyhjlg-Fc-XZC NEGATIVE Negative Protein-Urine NEGATIVE Negative PH-Urine 6.0 5-9 Blood-Urine 2+ Negative Ketones-Urine NEGATIVE Negative Bilirubin-Ur NEGATIVE Negative Glucose-Urine NEGATIVE Negative WBC-Urine 10-15 0-5 RBC-Urine 0-2 0-2 Epith Cells-Ur MODERATE None Bacteria-Urine 1+ None Laboratory test finding 09/15/2011 (HCG) Serum NEGATIVE Negative 18 CBC Auto Diff 09/15/2011 White Blood Count 12.2 CUMM High 4.8-10.8 Red Cell Count 4.52 CUMM 4.2-5.4 Hemoglobin 12.2 g/dL 12.0-16.0 Hematocrit 36 % 35-47 Mean Corpuscular Volume 79 um3 79-97 Mean Corpuscular Hemoglob 27 pg 27-31 Mean Corpuscular HGB Cone 34 g/dL 32-36 Redcell Distribution WDTH 14 % 10.5-15 Platelet Count 341 CUMM 150-450 Mean Platelet Volume 8.8 um3 7.4-10.4 Absolute Neutrophil Count 9.6 High 1.5-7.7 19 Manual Differential 09/15/2011 Polysegmented Neutrophil 79 % 38-83 Lymphocyte 15 % Low 25-47 Monocyte 4 % 0-13 Eosinophil 2 % 0-6 RBC Morphology NORMAL Laboratory test 09/12/2011 Urine Culture <SEE 20 finding Sensitivi NOTE> GC/Chlamydia 09/12/2011 M <SEE 21 Aptima NOTE> Laboratory test 09/12/2011 Blood Culture <SEE 22 finding NOTE> CBC Auto Diff 09/12/2011 White Blood Count 12.7 CUMM High 4.8-10. 8 Red Cell Count 4.66 CUMM 4.2-5.4 Hemoglobin 12.5 g/dL 12.0-16.0 Hematocrit 36 % 35-47 Mean Corpuscular Volume 78 um3 Low 79-97 Mean Corpuscular Hemoglob 27 pg 27-31 Mean Corpuscular HGB Cone 34 g/dL 32-36 Redcell Distribution WDTH 15 % 10.5-15 Platelet Count 306 CUMM 150-450 Mean Platelet Volume 8.4 um3 7.4-10.4 Absolute Neutrophil Count 10.2 High 1.5-7.7 23 Manual Differential 09/12/2011 Polysegmented Neutrophil 85 % High 38-83 Lymphocyte 9 % Low 25-47 Monocyte 6 % 0-13 Anisocytosis 1+ Microcytosis SLIGHT Polychromasia SLIGHT Comp Metabolic Panel 09/12/2011 Sodium 133 mmol/L Low 135-145 Potassium 3.8 mmol/L 3.5-5.0 Chloride 105 mmol/L 101-111 Co2 (Carbon Dioxide) 22.0 mmol/L 22-32 Anion Gap 6.0 mmol/L 2-11 24 Glucose 105 mg/dL High 70-100 BUN 8 mg/dL 6-24 Creatinine 0.6 mg/dL 0.50-1.40 One Over Creatinine 1.66 BUN/Creatinine Ratio 13.3 8-20 Calcium 9.1 mg/dL 8.1-9.9 Total Protein 6.6 GM/DL 6.2-8.1 Albumin 3.6 GM/DL 3.6-5.4 Globulin 3.0 GM/DL 2-4 Albumin/Globulin Ratio 1.2 1-3 Bilirubin Total 0.7 mg/dL 0.4-1.5 25 Alkaline Phosphatase 73 U/L 30-110 Alt (SGPT) 19 U/L 14-54 Ast (Sgot) 16 U/L 12-42 eGFR Non- 108.1 > 60 eGFR 139.0 > 60 26 Laboratory test finding 09/12/2011 Lipase 32 U/L 22-51 C Reactive Protein 2.7 mg/dL High Less Than 0.5 Vaginal Dna Probe 09/12/2011 M <SEE NOTE> 27 Laboratory test finding 12/08/2009 B12 1458 pg/mL High 230-1050 28 TSH 1.44 mIU/L 0.50-6.00 CBC (Fma) 12/08/2009 WBC 4.4 3.6-9.6 RBC 4.85 3.90-5.70 Hemoglobin (Fma/CMC/CTX) 12.0 g/dL Low 12.1 - 17.2 Hematocrit (Fma/CMC/CTX) 38.8 % 36.1 - 50.3 Mean Corpuscular Vol 80.0 Low 82.2-97.4 Mean Corpuscular Hemaglobin 24.7 Low 27.6-33.3 Mean Corpuscular Hemo Concen 30.9 Low 33.0-36.0 Platelets 271 10^3/ul 150-400 Lymph% 28.6 20.5-51.1 Mixed% 12.5 Neutrophils % 58.9 RDW 15.0 High 11.6-13.7 Mean Platelet Volume 11.2 High 7.4-10.4 Lipid Profile 06/23/2009 Cholesterol 225 mg/dL High 120-200 HDL 69 mg/dL 30-85 Triglycerides 106 mg/dL 30-200 HDL Risk Factor 3.2 CALC Low 4.2-7.0 LDL (Calculated) 135 CALC High 0-129 VLDL (Calculated) 21 mg/dL 0-50 Comprehensive Metabolic Prof 06/23/2009 Albumin 4.5 g/dL 3.8-5.5 Alk. Phos. 72 U/L 30-110 Alt (SGPT) 19 U/L 7-35 Ast (Sgot) 15 U/L 5-34 BUN 18 mg/dL 6-26 Calcium 10.1 mg/dL 8.6-10.2 Chloride 102 mEq/L 94-112 Creatinine 0.9 mg/dL 0.6-1.4 Carbon Dioxide 27 mEq/L 21-32 Glucose 115 mg/dL High 70-105 29 Sodium 137 mEq/L 134-149 Total Bilirubin 0.3 mg/dL 0.2-1.3 Total Protein 6.8 g/dL 6.3-8.1 Potassium 4.6 mEq/L 3.6-5.5 Globulin 2.4 g/dL 2.0-4.8 A/G Ratio 1.9 Calc 0.6-2.2 BUN/Creat Ratio 20.1 Calc 8.0-36.0 Laboratory test finding 06/23/2009 C-Reactive Protein 0.4 mg/dL 0.0-0.5 30 Yuni Panel Complete [place] 03/17/2009 Antinuclear AB (Yuni) NEGATIVE Negative 31, 32 Rheumatoid Arth Factor 7.2 IU/mL 0.0-13.9 31 Anti Dna (DS) 8.61 IU/mL <30 31, 33 Antiextractable Nuclear Ag 03/17/2009 [facility] Antibodies 5 U/ml Negative 31 , 34 Prince Antibodies 2 U/ml Negative 31, 35 Anti Dna (SS) Igg, 03/17/2009 Anti-Dna(SS)IgG, Ab, Qn 29 EU High 0-19 31 , 36 AB Hla-B27 Disease 03/17/2009 Hla-B27 Negative 31, 37 Association Laboratory test 03/17/2009 C-Reactive Protein 0.6 mg/dL High 0.0-0.5 31 finding Ua - Micro (Fma) 12/30/2008 Appearance HAZY Color YELLOW Glucose - Bilirubin - Ketones - SP Grav 1.020 Blood TRACE PH 5.0 Protein TRACE (SSA) Urobil 0.2 Nitrite POSITIVE Leukocytes (Fma/CMC/Centrex) SMALL Hyaline - /Lpf Granular - /Lpf WBC (Fma,Centrex) 15-20 RBC 3-5 Mucus - /Lpf Epith MOD /Lpf Bacteria 3+ /Hpf Amorphous - /Lpf Crystals, Fluid (Fma/CMC/CTX) - CBC With Electronic Diff 02/16/2007 White Blood Count 9.9 CUMM 4.8-10.8 Abs Basophils 0 0-0.2 Abs Eosinophils 0.2 0-0.6 Absolute Neutrophil Count 6.0 1.5-7.7 Abs Lymphs 2.8 1.0-4.8 Abs Mononuclear 0.8 0-0.8 Basophil % 0.5 % 0-2 Hematocrit 41 % 35-47 Hemoglobin 13.6 g/dL 12.0-16.0 Eosinophil % 2.0 % 0-6 Gran % 60.6 % 38-83 Lymph % 28.6 % 20-45 Mean Corpuscular HGB Cone 33 g/dL 32-36 Mean Corpuscular Hemoglob 28 pg 27-31 Mean Corpuscular Volume 84 um3 79-97 Mean Platelet Volume 8.5 um3 7.4-10.4 Mononuclear % 8.3 % 1-9 Platelet Count 380 CUMM 150-450 Red Cell Count 4.89 CUMM 4.2-5.4 Redcell Distribution WDTH 13 % 10.5-15 Laboratory test finding 02/16/2007 Erythrocyte Sed Rate 9 MM/HR 0-15 C Reactive Protein 0.7 mg/dL High Less Than 0.5 Thyroxine 7.9 g/dL 5-12 Laboratory test finding 11/01/1998 Hep BS Antibody REACTIVE Non Reactive 38 1 1sst 2 SEE RESULT BELOW Name: TOM SAMANIEGO : [address]: Shaw Arellano MD Acct: [id number] Unit: [id number] AGE: 51 Location: [facility] Re11/02/16 SEX: F Status: DEP REF SPEC: [id number] KARLI: 11/02/16-[address] [facility] [address]: Shaw Arellano MD REQ: [id number] RECD: 11/02/16 STATUS: PEGGY JUNG DR: William Edwards MD _ ORDERED: LEVEL 4 FINAL DIAGNOSIS Duodenum, biopsy: -- Benign small intestinal mucosa with no significant pathologic abnormalities. -- No evidence of villous blunting or increased intraepithelial lymphocytes. CLINICAL HISTORY No history given POST-OPERATIVE DIAGNOSIS Esophagus - large hiatal hernia, no camerons; stomach - normal, biopsied; duodenum - normal, biopsied. Colonoscopy to cecum - normal. 10 years GROSS DESCRIPTION The specimen is received in formalin labeled, Duodenal Biopsy, and consists of a 0.4 x 0.3 x 0.2 cm silva-pink irregular to polypoid soft tissue fragment, which is entirely submitted in one cassette. Signed (signature on file) Myra Rizo MD 1158 END OF REPORT * ML=Testing performed at Main Lab DEPARTMENT OF PATHOLOGY, [address] [place] [address] Troy Castellon M.D. Director SUSANNA # [id number] 3 SEE RESULT BELOW Name: TOM SAMANIEGO : [address]: Shaw Arellano MD Acct: [id number] Unit: [id number] AGE: 51 Location: ENDO Re11/02/16 SEX: F Status: REG REF SPEC: [id number] KARLI: 11/02/16-[address] [facility] [address]: Shaw Arellano MD REQ: [id number] RECD: 11/02/16-1030 STATUS: MARY JUNG DR: William Edwards MD _ SOURCE: GAS ANTRUM SPDESC: ORDERED: Clotest Procedure Result Reported Site Clotest Final 11/03/16- 0754 ML Clotest Negative * ML - MAIN LAB ([facility]) . END OF REPORT * ML=Testing performed at Main Lab DEPARTMENT OF PATHOLOGY, [address] [place] [address] Troy Castellon M.D. Director [facility] # [id number] 4 RESULTS VERIFIED BY REPEAT ANALYSIS 5 RESULTS VERIFIED BY REPEAT ANALYSIS 6 RESULTS VERIFIED BY REPEAT ANALYSIS 7 RESULTS VERIFIED BY REPEAT ANALYSIS 8 1 sst 9 2SST 10 Positive: 5 of the following Borrelia-specific bands: 18,23,28,30,39,41,45,58, 66, and 93. Negative: No bands or banding patterns which do not meet positive criteria. 11 Note: An equivocal or positive EIA result followed by a negative Western Blot result is considered NEGATIVE. An equivocal or positive EIA result followed by a positive Western Blot is considered POSITIVE by the CDC. Positive: 2 of the following bands: 23,39 or 41 Negative: No bands or banding patterns which do not meet positive criteria. Criteria for positivity are those recommended by CDC/ASTPHLD. p23=Osp C, b43=mxuwgfxno Note: Sera from individuals with the following may cross react in the Lyme Western Blot assays: other spirochetal diseases (periodontal disease, leptospirosis, relapsing fever, yaws, and pinta); connective autoimmune (Rheumatoid Arthritis and Systemic Lupus Erythematosus and also individuals with Antinuclear Antibody); other infections ([place] Spotted Fever; Yvette-Johnson Virus, and Cytomegalovirus). 12 1 sst 13 Mixed skin sulma no apparent pathogens. 14 NO EPI, NO WBC, NO ORGANISMS SEEN 15 Anion gap measurement may be of limited value in the presence of any alkalosis, especially in a combined acid base disorder. . 16 A metabolite of Naproxen, O-desmethylnaproxen, has been shown to interfere with the Jendrassik-Runville method for measuring total bilirubin. Samples from patients who have taken Naproxen have shown spurious elevation in total bilirubin levels. 17 Because ethnic data is not always readily available, this report includes an eGFR for both -Americans and non- Americans. The National Kidney Disease Education Program (NKDEP) does not endorse the use of the MDRD equation for patients that are not between the ages of 18 and 70, are , have extremes of body size, muscle mass, or nutritional status, or are non- or non-. According to the National Kidney Foundation, irrespective of diagnosis, the stage of the disease is based on the level of kidney function: Stage Description GFR(mL/min/1.73 m(2)) 1 Kidney damage with normal or decreased GFR 90 2 Kidney damage with mild decrease in GFR 60-89 3 Moderate decrease in GFR 30-59 4 Severe decrease in GFR 15-29 5 Kidney failure <15 (or dialysis) 18 If is still suspected, please repeat test after 48 to 72 hours. . This test detects intact HCG only and is indicated for the early detection of . 19 Lymphopenia % 20 RUN DATE: 09/14/11 [facility] NMI LIVE PAGE 1 RUN TIME: 940 Specimen Inquiry RUN USER: INTERFACE Name: KNEY SAMANIEGOJustine Thompson#: [id number] Status: SARMAD CLJustine Re09/12/11 Age/Sex: 46/F Unit#: [id number] Location: : 67 SPEC #: [id number] KARLI: 09/12/11 STATUS: COMP REQ #: [id number] RECD: 09/12/[address] [facility] [address]: Rafael LOO,[facility] SOURCE: URINE ENTR: 09/12/[address]: Joana LOO,[facility]: ORDERED: URINE C S QUERIES: MEDENT REQUISITION # SPECIMEN DESCRIPTION: URINE, CLEAN CATCH ACT WKST: UR 09/14/11 #1 Procedure Result Verified Site > URINE CULTURE SENSITIVI Final 09/14/11- 0940 ML SPECIMEN CONTAINS NORMAL URETHRAL OR PERINEAL SULMA AND DOES NOT SUGGEST URINARY TRACT INFECTION ML - [facility] State Permit #[id number] [address] [place] [address] DEPARTMENT OF PATHOLOGY, [address] [place] [address] [facility] Permit #[id number] Amanda Mak M.D. Cost Engineer 21 RUN DATE: 09/13/11 [facility] NMI LIVE PAGE 1 RUN TIME: 1237 Specimen Inquiry RUN USER: INTERFACE Name: TOM SAMANIEGO Status: SARMAD CLI Re09/12/11 Age/Sex: 46/F Unit#: [id number] Location: [facility] : 67 SPEC #: [id number] KARLI: 09/12/11 STATUS: MARY REQ #: [id number] RECD: 09/12/11-[address] [facility] [address]: Rafael LOOKatie SOURCE: ENDOCERVIX ENTR: 09/12/11-[address]: ORDERED: GC/CHL APTIMA ACT WKST: GCCHL 09/13/11 #1 Procedure Result Verified Site > CHLAMYDIA TRACHOMATIS RNA Final 09/13/11- 1236 ML NEGATIVE FOR CHLAMYDIA TRACHOMATIS rRNA A negative result does not preclude the presence of a C.trachomatis or N.gonorrhoeae infection because results are dependent on adequate specimen collection, absence of inhibitors, and sufficient rRNA to be detected. Test results may be affected by improper specimen collection, improper specimen storage, technical error, or specimen mixup. Limitations of the Procedure: The Aptima Combo 2 Assay is not intended for the evaluation of suspected sexual abuse or for other medico-legal indications. For those patients for whom a false positive result may have adverse psychosocial impact, the [facility] recommends retesting by a method using an alternate technology. Therapeutic failure or success cannot be determined with the Aptima Combo 2 Assay since nucleic acid may persist following appropriate antimicrobial therapy. Results from the APTIMA Combo 2 Assay should be interpreted in conjunction with other laboraotry and clinical data available to the clinician. Performance characteristics for detecting C. trachomatis and N. gonorrhoeae are derived from high prevalence populations. Positive results in low prevalence populations should be interpreted carefully with the understanding that the likelihood of a false positive may be higher than a true positive. DEPARTMENT OF PATHOLOGY, [address] [place] [address] [facility] Permit #[id number] Troy Castellon M.D. Director Brina Golden M.D. Cost Engineer RUN DATE: 09/13/11 [facility] NMI LIVE PAGE 2 RUN TIME: 1237 Specimen Inquiry RUN USER: INTERFACE Name: ALTONTOM SHAW Status: DEP CLI Re09/12/11 Age/Sex: 46/F Unit#: [id number] Location: [facility] : 67 -- -- CONTINU ED Procedure Result Verified Site > GC (N. GONORRHOEAE) RNA Final 09/13/11- 1236 ML NEGATIVE FOR NEISSERIA GONORRHOEAE rRNA A negative result does not preclude the presence of a C.trachomatis or N.gonorrhoeae infection because results are dependent on adequate specimen collection, absence of inhibitors, and sufficient rRNA to be detected. Test results may be affected by improper specimen collection, improper specimen storage, technical error, or specimen mixup. Limitations of the Procedure: The Aptima Combo 2 Assay is not intended for the evaluation of suspected sexual abuse or for other medico-legal indications. For those patients for whom a false positive result may have adverse psychosocial impact, the CDC recommends retesting by a method using an alternate technology. Therapeutic failure or success cannot be determined with the Aptima Combo 2 Assay since nucleic acid may persist following appropriate antimicrobial therapy. Results from the APTIMA Combo 2 Assay should be interpreted in conjunction with other laboraotry and clinical data available to the clinician. Performance characteristics for detecting C. trachomatis and N. gonorrhoeae are derived from high prevalence populations. Positive results in low prevalence populations should be interpreted carefully with the understanding that the likelihood of a false positive may be higher than a true positive. - [facility] State Permit #[id number] [address] [place] [address] DEPARTMENT OF PATHOLOGY, [address] [place] [address] [facility] Permit #[id number] Amanda Mak M.D. Cost Engineer 22 RUN DATE: 09/17/11 [facility] NMI LIVE PAGE 1 RUN TIME: 1138 Specimen Inquiry RUN USER: INTERFACE Name: KENY SAMANIEGOJustine Gannon Status: DEP ER Re09/12/11 Age/Sex: 46/F Unit#: [id number] Location: ED : 67 SPEC #: [id number] KARLI: 09/12/11 STATUS: COMP REQ #: [id number] RECD: 09/12/[address]: Waylon Gamboa DO SOURCE: BLOOD ENTR: 09/12/[address] [facility] DR[facility]VENO Farenga Heide CHEN ORDERED: BLOOD CULTURE ACT WKST: 09/13/11 #1 Procedure Result Verified Site > AEROBIC CULTURE BOTTLE Final 09/17/11- 8 ML NO GROWTH AFTER 5 DAYS > ANAEROBIC CULTURE BOTTLE Final 09/17/11- 1137 ML NO GROWTH AFTER 5 DAYS - [facility] State Permit #[id number] [address] [place] [address] DEPARTMENT OF PATHOLOGY, [address] [place] [address] [facility] Permit #[id number] Troy Castellon M.D. Director Brina Golden M.D. Cost Engineer 23 Lymphopenia % 24 Anion gap measurement may be of limited value in the presence of any alkalosis, especially in a combined acid base disorder. . 25 A metabolite of Naproxen, O-desmethylnaproxen, has been shown to interfere with the Jendrassik-Runville method for measuring total bilirubin. Samples from patients who have taken Naproxen have shown spurious elevation in total bilirubin levels. 26 Because ethnic data is not always readily available, this report includes an eGFR for both -Americans and non- Americans. The National Kidney Disease Education Program (NKDEP) does not endorse the use of the MDRD equation for patients that are not between the ages of 18 and 70, are , have extremes of body size, muscle mass, or nutritional status, or are non- or non-. According to the National Kidney Foundation, irrespective of diagnosis, the stage of the disease is based on the level of kidney function: Stage Description GFR(mL/min/1.73 m(2)) 1 Kidney damage with normal or decreased GFR 90 2 Kidney damage with mild decrease in GFR 60-89 3 Moderate decrease in GFR 30-59 4 Severe decrease in GFR 15-29 5 Kidney failure <15 (or dialysis) 27 RUN DATE: 09/12/11 [facility] NMI LIVE PAGE 1 RUN TIME: 1443 Specimen Inquiry RUN USER: INTERFACE Name: ALTONTOM L Accetienne#: [id number] Status: SARMAD CLI Re09/12/11 Age/Sex: 46/F Unit#: [id number] Location: : 67 SPEC #: [id number] KARLI: 09/12/117783 STATUS: MARY HULL #: [id number] RECD: 09/12/11-[address]: Katie Hall MD SOURCE: VAGINAL ENTR: 09/12/11-[address] [facility] DR: Joana LOO,[facility]: ORDERED: AFFIRM ACT WKST: AFFIRM 09/12/11 #2 Procedure Result Verified Site > VAGINAL DNA PROBE Final 09/12/11- 1443 ML TRICHOMONAS NEGATIVE GARDNERELLA NEGATIVE SILVIA SPP NEGATIVE The presence of G. vaginalis, although suggestive, is not diagnostic for bacterial vaginosis. Results should be interpreted in conjunction with other clinical and laboratory data available. Women with vaginal discharge should be evaluated for risk factors of cervicitis and pelvic inflammatory disease, toxic shock syndrome (S.aureus), and if present, evaluated for organisms not included in this assay such as N. gonorrhoeae, C. trachomatis, Mobiluncus, Mycoplasma and/or Prevotella. Mixed infections may occur. The performance of this test on patient specimens collected during or immediately after antimicrobial therapy is unknown. The presence or absence of Silvia species, G. vaginalis or T. vaginalis cannot be used as a test for therapeutic success or failure. ML - [facility] [place] State Permit #[id number] [facility] [address] DEPARTMENT OF PATHOLOGY, [facility] DATES [place], [place] [address] [facility] Permit #[id number] Troy Castellon M.D. Director Brina Golden M.D. Cost Engineer 28 RESULT GONZÁLEZ'D 29 RESULT GONZÁLEZ'D 30 FASTING; 1SST 31 3 SSTAND 1 PALE YELLOW TOP TUBE AND A PURPLE TOP TUBE 32 (Performed by Enzyme Immunoassay, EIA) 33 < 30 Negative 30-75 Equivocal > 75 Positive . 34 < 10 Negative > or=10 Positive 35 < 10 Negative > or=10 Positive 36 Negative: <20 Borderline: 20 - 25 Positive: >25 37 This test was performed using PCR (Polymerase Chain Reaction)/SSOP (Sequence Specific Oligonucleotide Probes) technique. SBT (Sequence Based Typing) and/or SSP (Sequence Specific Primers) may be used as supplemental methods when necessary. Please contact [facility] Customer Service at if you have any questions. . Director of [facility] Dr Ayush Jarvis, PhD 38 THIS QUALITATIVE ASSAY DETECTS THE PRESENCE OF HEPATITIS B SURFACE ANTIBODIES. IT DOES NOT IMPLY THAT THE INDIVIDUAL IS IMMUNE. IMMUNE STATUS MAY BE DETERMINED UTILIZING THE RESULTS FROM THE QUANTITATIVE HEPATITIS B SURFACE ANTIBODY ASSAY. Procedures Date CPT Code Description Status Comment 11/20/2016 Colonoscopy Completed NEGATIVE 11/02/2016 Colonoscopy Completed 08/19/2016 71443 Remove Impacted Cerumen Completed 04/10/2016 Mammogram Completed utd with mobility developer 03/18/2015 Mammogram Completed 06/24/2009 Mammogram Completed 04/26/2004 97147 Nebulizer Treatment Completed 11/18/1998 74873 Excise Benign Lesion .6-1CM Completed Trunk/Arm/Leg Encounters Type Date Location Provider CPT E/M Dx Office Visit 10/17/2017 7:10p Main Office William Edwards M.D. 36261 M54.5 M54.16 M25.562 M25.561 Office Visit 09/25/2017 1:00p Main Office William Edwards M.D. 29098 M54.5 M54.2 M25.521 M25.562 Office Visit 09/20/2016 8:00p Main Office William Edwards M.D. 34913 D64.9 R53.82 Office Visit 08/27/2016 9:00a [facility] Office Stephanie Pimentel, Afnp-C 32162 H53.8 R53.82 S70.362A D64.9 Office Visit 08/19/2016 9:45a Main Office EDGARD OrtizP 79722 J01.90 H61.21 Office Visit 03/15/2016 6:20p Main Office William Edwards M.D. 37766 A69.23 A69.22 Office Visit 02/02/2016 6:00p Main Office William Edwards M.D. 54520 A69.23 A69.22 Z23 Office Visit 01/04/2016 4:40p Main Office William Edwards M.D. 81500 A69.23 A69.22 M79.1 Office Visit 11/20/2015 10:00a Main Office William Edwards M.D. 38649 A69.23 A69.22 Office Visit 09/22/2015 5:20p Main Office William Edwards M.D. 88270 A69.22 F51.01 A69.23 Office Visit 08/25/2015 6:00p Main Office William Edwards M.D. 46715 A69.22 F51.01 Office Visit 07/28/2015 6:10p Main Office William Edwards M.D. 73187 A69.23 A69.22 Office Visit 06/30/2015 2:40p Main Office William Edwards M.D. 81769 A69.23 A69.22 K21.9 Office Visit 05/25/2015 10:00a Main Office William Edwards M.D. 86950 A69.23 A69.22 Office Visit 04/28/2015 5:10p Main Office William Edwards M.D. 46719 A69.23 A69.22 Office Visit 03/31/2015 5:10p Main Office William Edwards M.D. 30054 A69.29 A69.23 Office Visit 03/13/2015 2:00p Main Office William Edwards M.D. 60405 A69.23 Office Visit 02/17/2015 8:00p Main Office William Edwards M.D. 22281 M54.2 M54.6 K21.9 M13.0 Office Visit 09/30/2014 11:00a Main Office William Edwards M.D. 59983 704.8 782.1 Office Visit 08/05/2014 1:10p Main Office William Edwards M.D. 86071 704.8 782.1 Office Visit 08/02/2014 11:40a Main Office William Edwards M.D. 16351 704.8 Office Visit 10/15/2013 7:15p Main Office EVAN Ortiz 78491 682.8 Office Visit 09/03/2013 11:20a Main Office Edis Ames M.D. 64777 692.6 Office Visit 06/04/2013 5:00p Main Office William Edwards M.D. 67891 300.00 401.1 Office Visit 05/13/2013 2:00p Main Office William Edwards M.D. 30704 401.1 Office Visit 03/26/2013 6:00p Main Office William Edwards M.D. 71853 401.1 784.0 Office Visit 09/25/2012 6:00p Main Office William Edwards M.D. 84575 401.1 784.0 724.2 Office Visit 06/26/2012 6:00p Main Office William Edwards M.D. 73154 401.1 784.0 786.2 Office Visit 05/26/2012 11:30a Main Office Kelly Capps M.D. 08073 053.29 Office Visit 05/25/2012 8:00a Main Office William Edwards M.D. 29398 784.0 401.1 Office Visit 05/01/2012 8:10p Main Office William Edwards M.D. 02847 784.0 Office Visit 10/25/2010 5:30p Main Office Myra Keene M.D. 72938 110.8 705.1 Office Visit 05/28/2010 9:00a [facility] Edis Ames M.D. 68956 729.5 Office Visit 12/08/2009 10:50a [facility] Edis Ames M.D. 26647 333.94 Office Visit 10/08/2009 9:10a [facility] William Edwards M.D. 44851 461.9 784.0 Office Visit 09/15/2009 8:20p Main Office William Edwards M.D. 87159 780.4 784.0 333.94 310.2 Office Visit 06/10/2009 1:20p [facility] Edis Ames M.D. 77145 333.94 V77.91 V76.10 Office Visit 04/15/2009 11:30a [facility] Edis Ames M.D. 85703 780.4 Office Visit 03/12/2009 7:20p Main Office Edis Ames M.D. 98015 736.29 333.94 Office Visit 02/04/2009 4:30p Main Office Gladys Antonio 99169 786.2 Office Visit 12/30/2008 4:30p [facility] Stephanie Pimentel Afnp-C 48374 599.0 Office Visit 06/03/2008 3:00p [facility] Edis Ames M.D. 93064 784.0 Office Visit 05/26/2008 4:00p Main Office Kira MembrenoEVAN davis 45589 784.0 Office Visit 09/12/2007 8:00p Main Office Stephanie Pimentel Afnp-C 48105 784.0 Office Visit 06/13/2007 3:45p Main Office Stephanie Pimentel Afnp-C 27410 723.1 Office Visit 05/08/2007 3:30p [facility] Stephanie Pimentel Afnp-C 70912 847.2 847.3 Office Visit 03/19/2007 11:00a Main Office Stephanie Pimentel Afnp-C 13656 528.9 Office Visit 02/13/2007 1:45p Main Office Heide Mc Afnp-C 94910 784.0 Office Visit 05/30/2005 9:00a Main Office Stephanie Pimentel Afnp-C 27361 382.9 Office Visit 07/21/2004 4:30p Main Office William Edwards M.D. 39094 461.9 465.9 786.2 Office Visit 04/26/2004 8:00p Main Office EDGARD SommersP 60112 466.0 Office Visit 08/26/2003 3:00p Main Office Heide Mc Afnp-C 66571 959.5 Office Visit 02/19/2003 4:15p Main Office Stepahnie Pimentel Afnp-C 62783 465.9 473.9 381.81 Office Visit 01/13/2003 2:30p Main Office Allison Ramirez MOLD CONSTRUCTION SUPERVISOR-C 99712 490 373.11 Office Visit 06/20/2002 1:20p Main Office Edis Ames M.D. 14479 372.00 Office Visit 04/23/2002 6:15p Main Office Heide Mc Afnp-C 26288 381.81 Office Visit 05/31/2000 4:00p Main Office Stephanie Pimentel, Afhemal-C 43645 Plan of Care 12/20/2017 - Noemí Rivas, NPD64.9 Anemia, unspecifiedNew Labs:CBC Electronic (Fma New)B12 (Fma/CMC/Centrex)Ferritin (Fma/CMC/Centrex)Iron, Total ( Fma)Comp Metabolic-ALL Lab CompaniMagnesium (Fma/CMC/Centrex)Comments:We will recheck your labs.R06.02 Shortness of ulumyrF83 Essential (primary) hypertensionNew Medication:Irbesartan 75 mgComments:Call or return to the office if:* you get more than one blood pressure reading above 160/100 (even if only one of the numbers is high)* you feel close to passing out or actually pass out* you have new or worsening swelling in the ankles, legs, hands, or face * you develop palpiatations or funny [id number] UxzmvvrhF15.31 Encntr screen mammogram for malignant neoplasm of breastNew Xrays:Mammography Screening, Bilateral; 2-View Each BreastAllComments:1. Patient has been queried about patient's goals/preferences and functional/lifestyle goals at relevant visits. If relevant, describe: Has been discussed, noted above2. Treatment goals as explainedto the patient: see above3. Are there barriers to meeting treatment goals? Yes If Yes, please describe: Barriers include possible insurance limits, disease process, and difficulty with lifestyle changes4. Self- Management goals as described to the patient: Yes, see above As always, we strongly encourage a healthy diet and making physical activity a part of your every day life. If you have questions about how or where to start, please contact the office.
[2017-12-23 14:25] LABS: INR 0.97 (0.77-1.02)
[2017-12-23 14:32] LABS: Hematocrit 18 % (35-47); Mean Corpuscular HGB Conc 33 g/dl (31-36); Mean Corpuscular Hemoglobin 23 pg (27-31); Mean Corpuscular Volume 69 fL (80-97); Mean Platelet Volume 7.4 um3 (7.4-10.4); Platelet Count 334 10^3/ul (150-450); Red Cell Distribution Width 16 % (10.5-15)
[2017-12-23 14:33] LABS: Hemoglobin 5.9 g/dl (12.0-16.0)
[2017-12-23 14:37] LABS: EGFR Non-African American 91.2 (>60)
[2017-12-23 15:13] LABS: ABS Basophils 0 10^3/ul (0-0.2); ABS Eosinophils 0.1 10^3/ul (0-0.6); ABS Monocytes 0.5 10^3/ul (0-0.8); ABS Neutrophils 2.4 10^3/ul (1.5-7.7); ABS Nucleated RBC 0 10^3/ul; Eosinophil % 2.1 % (0-6); Lymphocyte % 40.1 % (25-47); Nucleated Red Blood Cells % 0.1
--- NOTE | 2017-12-23 15:15 | ED ---
Complex/Multi-Sys Presentation - HPI Summary HPI Summary: Patient is a 52 y/o F w/ low hemoglobin at 5.8. She was seen by PCP today who checked her hemoglobin levels and told her to come to ED. Patient reports that she has been "feeling poorly" for the past month. She also reports some SOB while walking. She denies chest pain, vaginal bleeding and any dark/maroon colored stools. LNMP was this past April, patient states she has been having normal bowel movements. Patient reports PMHx of anemia. She states that she has had a colonoscopy in the past but notes there were no abnormal findings. On triage, pain is denied and nothing is noted to aggravate/alleviate Sx. She denies FMHx of blood disorders in mom or dad. - History Of Current Complaint Chief Complaint: EDGeneral Time Seen by Provider: 12/23/17 13:40 Hx Obtained From: Patient Onset/Duration: Lasting Weeks - "feeling poorly" onset was a month ago, Still Present Timing: Constant Severity Currently: None - pain is denied on triage Aggravating Factor(s): nothing Alleviating Factor(s): nothing Associated Signs And Symptoms: Positive: SOB - while walking, Other - NEGATIVE: black/maroon colored stools, vaginal bleeding. Negative: Chest Pain - Allergies/Home Medications Allergies/Adverse Reactions: Allergies Allergy/AdvReac Type Severity Reaction Status Date / Time Penicillins Allergy Itching Verified 12/23/17 13:25 sulfamethoxazole Allergy Unknown Verified 12/23/17 13:25 [From Bactrim] Reaction Details trimethoprim [From Bactrim] Allergy Unknown Verified 12/23/17 13:25 Reaction Details cashews Allergy Severe Anaphylatic Uncoded 12/23/17 13:25 Shock Home Medications: Home Medications Irbesartan 75 mg PO DAILY 12/23/17 [History Confirmed 12/23/17] Naproxen [Naproxen 500 mg tab] 500 mg PO DAILY 12/23/17 [History Confirmed 12/23] Norethindrone [Deblitane] 1 tab PO DAILY 12/23/17 [History Confirmed 12/23/17] PMH/Surg Hx/FS Hx/Imm Hx Endocrine/Hematology History: Denies: Hx Diabetes, Hx Thyroid Disease Cardiovascular History: Reports: Hx Hypertension Respiratory History: Denies: Hx Asthma, Hx Chronic Obstructive Pulmonary Disease (COPD) GI History: Denies: Hx Ulcer - Cancer History Hx Chemotherapy: No Hx Radiation Therapy: No - Surgical History Surgery Procedure, Year, and Place: tubal ligation. T&A Infectious Disease History: No Infectious Disease History: Reports: Hx of Known/Suspected MRSA - SKIN 2 YEARS AGO, Hx Shingles - QUESTIONABLE, History Other Infectious Disease - Lyme Denies: Hx Clostridium Difficile, Hx Hepatitis, Hx Human Immunodeficiency Virus (HIV), Traveled Outside the [place] in Last 30 Days - Family History Known Family History: Positive: Cardiac Disease, Hypertension Negative: Blood Disorder - none in mom or dad Family History: No FHx breast cancer - Social History Alcohol Use: Occasionally Substance Use Type: Reports: None Smoking Status (MU): Never Smoked Tobacco Have You Smoked in the Last Year: No Review of Systems Positive: Other - patient has been "feeling poorly" Negative: Chest Pain Positive: Shortness Of Breath - while walking Positive: other - NEGATIVE: vaginal bleeding, dark/maroon colored stool All Other Systems Reviewed And Are Negative: Yes Physical Exam - Summary Physical Exam Summary: Appearance: pale appearing, no pain distress Skin: warm, dry, reflects adequate perfusion Head/face: normal Eyes: conjunctiva are pale, EOMI, CUONG ENT: normal Neck: supple, non-tender Respiratory: CTA, breath sounds present Cardiovascular: RRR, pulses symmetrical Abdomen: non-tender, soft Bowel Sounds: present Musculoskeletal: normal, strength/ROM intact Neuro: normal, sensory motor intact, A&Ox3 Gentiourinary: no hemorrhoids noted. Triage Information Reviewed: Yes Vital Signs On Initial Exam: Initial Vitals Temp Pulse Resp BP Pulse Ox 99.1 F 79 14 157/89 100 12/23/17 13:21 12/23/17 13:21 12/23/17 13:21 12/23/17 13:21 12/23/17 13:21 Vital Signs Reviewed: Yes Diagnostics - Vital Signs Vital Signs Temp Pulse Resp BP Pulse Ox 12/23/17 14:02 77 98 12/23/17 13:21 99.1 F 79 14 157/89 100 - Laboratory Lab Results: Lab Results 12/23/17 12/23/17 12/23/17 Range/Units 14:01 14:01 14:01 WBC 5.0 (3.5-10.8) 10^3/ul RBC 2.60 L (4.00-5.40) 10^6/ul Hgb 5.9 L* (12.0-16.0) g/dl Hct 18 L (35-47) % MCV 69 L (80-97) fL MCH 23 L (27-31) pg MCHC 33 (31-36) g/dl RDW 16 H (10.5-15) % Plt Count 334 (150-450) 10^3/ul MPV 7.4 (7.4-10.4) um3 Neut % (Auto) Pending Lymph % (Auto) Pending [place] % (Auto) Pending Eos % (Auto) Pending Baso % (Auto) Pending Absolute Neuts (auto) Pending Absolute Lymphs (auto) Pending Absolute Monos (auto) Pending Absolute Eos (auto) Pending Absolute Basos (auto) Pending Absolute Nucleated RBC Pending Nucleated RBC % Pending INR (Anticoag Therapy) 0.97 (0.77-1.02) APTT 26.5 (26.0-36.3) seconds Sodium 139 (135-145) mmol/L Potassium 3.9 (3.5-5.0) mmol/L Chloride 111 (101-111) mmol/L Carbon Dioxide 22 (22-32) mmol/L Anion Gap 6 (2-11) mmol/L BUN 15 (6-24) mg/dL Creatinine 0.68 (0.51-0.95) mg/dL Est GFR ( Amer) 110.4 (>60) Est GFR (Non-Af Amer) 91.2 (>60) BUN/Creatinine Ratio 22.1 H (8-20) Glucose 102 H (70-100) mg/dL Calcium 8.9 (8.6-10.3) mg/dL Total Bilirubin 0.30 (0.2-1.0) mg/dL AST 14 (13-39) U/L ALT 13 (7-52) U/L Alkaline Phosphatase 64 (34-104) U/L Total Protein 6.3 L (6.4-8.9) g/dL Albumin 4.0 (3.2-5.2) g/dL Globulin 2.3 (2-4) g/dL Albumin/Globulin Ratio 1.7 (1-3) Blood Type Antibody Screen Crossmatch 12/23/17 Range/Units 14:01 WBC (3.5-10.8) 10^3/ul RBC (4.00-5.40) 10^6/ul Hgb (12.0-16.0) g/dl Hct (35-47) % MCV (80-97) fL MCH (27-31) pg MCHC (31-36) g/dl RDW (10.5-15) % Plt Count (150-450) 10^3/ul MPV (7.4-10.4) um3 Neut % (Auto) Lymph % (Auto) [place] % (Auto) Eos % (Auto) Baso % (Auto) Absolute Neuts (auto) Absolute Lymphs (auto) Absolute Monos (auto) Absolute Eos (auto) Absolute Basos (auto) Absolute Nucleated RBC Nucleated RBC % INR (Anticoag Therapy) (0.77-1.02) APTT (26.0-36.3) seconds Sodium (135-145) mmol/L Potassium (3.5-5.0) mmol/L Chloride (101-111) mmol/L Carbon Dioxide (22-32) mmol/L Anion Gap (2-11) mmol/L BUN (6-24) mg/dL Creatinine (0.51-0.95) mg/dL Est GFR ( Amer) (>60) Est GFR (Non-Af Amer) (>60) BUN/Creatinine Ratio (8-20) Glucose (70-100) mg/dL Calcium (8.6-10.3) mg/dL Total Bilirubin (0.2-1.0) mg/dL AST (13-39) U/L ALT (7-52) U/L Alkaline Phosphatase (34-104) U/L Total Protein (6.4-8.9) g/dL Albumin (3.2-5.2) g/dL Globulin (2-4) g/dL Albumin/Globulin Ratio (1-3) Blood Type A Positive Antibody Screen Negative Crossmatch See Detail Result Diagrams: 12/23/17 14:01 12/23/17 14:01 Lab Statement: Any lab studies that have been ordered have been reviewed, and results considered in the medical decision making process. - EKG 1355 Cardiac Rate: NL - rate of 76 bpm EKG Rhythm: Sinus Rhythm ST Segment: Normal EKG Interpretation: normal axis and intervals Re-Evaluation - Re-Evaluation First Eval Re-Evaluation Time: 14:44 Comment: Patient was informed of decision [place] [facility] is agreeable with this plan. Complex Multi-Symp Course/Dx Course Of Treatment: Patient with a history of anemia in the past presents with significant anemia and pallor. Hemoglobin less than 6. Transfused 2 units of blood. Hemoccult is negative. Patient will require further investigation of why she become so profoundly anemic. She'll be admitted through the hospitalist service. - Diagnoses Differential Diagnoses/HQI/PQRI: Other - GI bleed, myelodysplastic syndrome, occult bleed Provider Diagnoses: Microcytic anemia - Physician Notifications Discussed Care Of Patient With: Lucia Rosales Time Discussed With Above Provider: 14:39 Instructed by Provider To: Other - Dr. Rosales was consulted on patient's case at 1439; Connie accepts [place] [facility] [place]. - Critical Care Time Critical Care Time: 30-74 min - 30 minutes; CCT is EXCLUSIVE of separately billable procedures Discharge - Sign-Out/Discharge Documenting (check all that apply): Patient Departure - admit - Discharge Plan Condition: Fair Disposition: ADMITTED TO [facility] - Billing Disposition and Condition Condition: FAIR Disposition: Admitted to [facility] - Attestation Statements Document Initiated by [place]: Yes Documenting Scribe: Antonino Payan Provider For Whom Savannah is Documenting (Include Credential): Nir Mcclelland MD Scribe Attestation: Antonino Fletcher, scribed for Nir Mcclelland MD on 12/23/17 at 1711. Scribe Documentation Reviewed: Yes Provider Attestation: The documentation as recorded by the Antonino beatty accurately reflects the service I personally performed and the decisions made by me, Nir Mcclelland MD
[2017-12-23] MEDS ORDERED: PROCHLORPERAZINE INJ 5 MG/ML 2 ML VIAL IV PRN (15:35)
[2017-12-23] MEDS ORDERED: Acetaminophen TAB* 325 MG PO PRN (15:35)
[2017-12-23] MEDS ORDERED: NS 0.9% 1000 ML* 1,000 ML IV SCH (15:45)
[2017-12-23 15:57] LABS: Corrected Retic Count 1.1 % (0.5-1.5); Hematocrit for Retic CNT 18 % (35-47); RBC Retic Count 2.61 10^6/ul (4.6-6.2)
[2017-12-23] MEDS ORDERED: Heparin VIAL(*) 5000 UNITS/ML VIAL (FIVE THOUSAND) SUBCUT SCH (22:00)
--- NOTE | 2017-12-23 22:05 | HP ---
CC: Dr. Edwards HISTORY AND PHYSICAL: DATE OF ADMISSION: 12/23/17 TIME OF EVALUATION: 3:30 p.m. PRIMARY CARE PROVIDER: Dr. Edwards. CONSULTING YARN INSPECTOR: Dr. Arellano. CONSULTING ENGINEERING TEST SPECIALIST: Dr. Valverde. CHIEF COMPLAINT: "I am weak". HISTORY OF PRESENT ILLNESS: Ms. Samaniego is a 52-year-old lady with a past medical history of hypertension, iron deficiency anemia, postmenopausal who presented to the emergency room with complaints of progressive fatigue and weakness. Summer 2016, the patient developed iron deficiency anemia. She had complaints of shortness of breath and fatigue and her primary care provider referred her to GI evaluation. In October 2016, she had an upper endoscopy that showed a very large hiatal hernia, but no Willem erosions and no other abnormalities. She had duodenal biopsy that showed no evidence of villous blunting or increased intraepithelial lymphocysts. At the same date, she also had a colonoscopy that was normal. As part of her workup, the patient has also had a capsule endoscopy in February 2017 and although it had poor quality of preparation, it showed only one very small ulcer of the small bowel unlikely to be contributing to her symptoms. The patient states that with iron supplementation, her numbers improved and she was feeling well. So, she did not see a piano builder. Over the couple of months, she has started to have again weakness and fatigue and this has progressed to the point that she went back to see her primary care provider and she was found to be anemic again. She denies abdominal pain, nausea, vomiting. No signs of bleeding. No black stools. She does take naproxen as outpatient. She states she is menopausal and her last period was in April 2017. In the emergency room, she was found to have severe anemia with a hemoglobin of 5.9 with hypochromia and microcytosis and the hospitalist service was called for further evaluation. PAST MEDICAL HISTORY: 1. Hypertension. 2. Iron deficiency anemia as described above. 3. Postmenopausal. 4. Hiatal hernia. PAST SURGICAL HISTORY: Status post tubal ligation. MEDICATION LIST: 1. Norethindrone 1 tablet p.o. daily. 2. Irbesartan 75 mg p.o. daily. 3. Naproxen 500 mg p.o. daily. ALLERGIES: To PENICILLIN, BACTRIM, and CASHEWS. FAMILY HISTORY: Mother has heart disease, has pacemaker. Father has valvular heart disease. Brother has history of alcohol use. She works at [employer] and surrogate decision maker is her , Luis Samaniego. Phone number is [phone]. SOCIAL HISTORY: No history of tobacco abuse. Drinks alcohol occasionally. No history of drug use. REVIEW OF SYSTEMS: A 14-point review of systems was performed and all the pertinent negative and positive findings are in the HPI. PHYSICAL EXAMINATION GENERAL: The patient is a pleasant middle-aged lady, lying up in the ED stretcher, in no acute distress. VITAL SIGNS: Temperature 99.1, heart rate is 77, respiratory rate is 16, oxygen saturation is 98% on room air, blood pressure is 147/84. HEENT: Pupils are equal, pale. Moist mucous membranes. CHEST: Breath sounds bilaterally with no added sounds. CVS: Normal S1, S2. Regular rate and rhythm. ABDOMEN: Soft, nontender. Bowel sounds are present. There is no hepatosplenomegaly. EXTREMITIES: No edema. NEURO: She is alert, oriented x3. Able to move all 4 extremities. DIAGNOSTIC STUDIES/LAB DATA: Her CBC showed a WBC of 5, hemoglobin of 5.9, hematocrit of 18, MCV of 69, MCH was 23, RDW of 16, platelet count of 354. INR is 0.97. Chemistry showed sodium of 139, potassium of 3.9, chloride of 111, bicarb of 22, BUN of 15, creatinine of 0.68, glucose of 102, calcium of 8.9. Total bilirubin of 0.3, AST is 14, ALT is 13, alk phos 64. EKG done 12/23/17 at 1:55 p.m. showed normal sinus rhythm at 76 beats per minute with no ST-T changes. There is no prior EKG to compare. ASSESSMENT AND PLAN: Ms. Samaniego is a 52-year-old lady with past medical history of hypertension, iron deficiency anemia who presented to the emergency room with complaints of fatigue and weakness, found to have severe anemia. 1. Severe anemia. It certainly appears to be iron deficiency. Although, she has no signs of GI bleed at this time, it could certainly be occult loss associated with NSAID use. I discussed the case with GI (Dr. Arellano) and he will see her in consultation, but he feels that she had a recent negative workup. As she is using NSAID, he may consider repeating her upper endoscopy, but he does not feel the whole workup is indicated again. I also sent anemia workup and requested Hematology consultation. She does not appear to be hemolyzing at this time as her total bilirubin is normal, but I am going to check her LDH. We will check also B12 and folate, but she has significant hypochromia and microcytosis that really suggests iron deficiency as the etiology. The patient is symptomatic. She will receive 2 PRBCs and we will monitor her H and H. 2. Hypertension. We are going to continue her ARB. 3. DVT prophylaxis. The patient has a score of 2 on the DVT Prophylaxis Risk Assessment Guide, but as there is concern for possible gastrointestinal bleed with severe anemia, pharmacological prophylaxis is contraindicated and she will have SCDs. 4. Code status is full. TIME SPENT: Approximately 45 minutes were spent with the patient interview, medical records review, physical examination to complete the admission, more than half of this time was spent [id number] with the patient and coordination of care. [id number]/[facility] #: [id number] [place]
--- NOTE | 2017-12-23 22:46 | CONS ---
AMENDED REPORT NOW INCLUDES DATE OF CONSULT - ESIGNED BEFORE ADJUSTMENT CONSULTATION REPORT: DATE OF CONSULT: 12/23/17 REFERRING PHYSICIAN: Dr. Pascual. REASON FOR CONSULTATION: Deficiency anemia. HISTORY OF PRESENT ILLNESS: A 52-year-old female who originally developed iron deficiency anemia in early 2014. She had an evaluation at that time by Dr. Arellano that included a colonoscopy and endoscopy marked in October 2016. The colonoscopy did not reveal lesions. The endoscopy showed a large hiatal hernia with Willem's erosion and she had biopsy for H. pylori and celiac. The biopsies showed benign intestinal mucosa, no evidence of celiac. She had a followup capsules study in January 2017 that showed very small ulcer in the duodenum unlikely to be contributing to her symptoms. She was placed on oral iron with recovery of blood counts and then stopped the iron. She has a long history of fatigue for several years that is attributed to chronic Lyme and a chronic pain syndrome. She has been followed by the Dr. Edwards and had several courses of antibiotics. Over the past several months, she noticed progressive fatigue. 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 She has noticed energy is lower than her baseline. About a month ago, she started to develop shortness of breath walking across the room and she started to be able to hear and feel her pulse in her ears and both those symptoms are getting worse and worse. She went to Dr. Edwards's office with the complaint of shortness of breath and had a CBC done. CBC showed a hemoglobin of 5.9, white count 5, platelets of 334, MCV of 69, and RDW of 16. She had iron studies that showed saturation of 3% and ferritin of 1.8, normal albumin, B12 borderline at 296. Because of the hemoglobin of 5.9 and her severe symptoms, she was sent to the emergency room. She is now receiving 2 units of packed red blood cells. Denies any blood in the stool or change in stool color. Her last menstrual period was in April 2017. Of note, she has a history of very heavy menstrual periods for which she started the [place] several years ago and had regular periods up through 2017. No fevers, chills, no weight loss. She has had easy bruising over several years. PAST MEDICAL HISTORY: 1. Hiatal hernia. 2. Chronic Lyme disease, multiple course of antibiotics. Evolved into chronic pain syndrome. Tried dietary modifications, cutting out dairy and gluten. 3. Wilder's cyst. 4. Diffuse arthritis and spinal stenosis, taking Naprosyn. PAST SURGICAL HISTORY: Tubal ligation. HOME MEDICATIONS: 1. Norethindrone 1 tablet daily. 2. Irbesartan 75 mg daily. 3. Naproxen 500 mg daily. ALLERGIES: PENICILLIN. GYNECOLOGIC HISTORY: Perimenopausal. FAMILY HISTORY: Coronary disease, diabetes, no history of anemia and she is of ethnic Citizen [place] descent. 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 She does not smoke, does not drink, . REVIEW OF SYSTEMS: General: No fevers, but she has had a temperature around 99 over the past week, which is up from her baseline of 97 to 98, weight has been stable. HEENT: Negative. Shortness of breath as noted above. She has had some palpitations. No chest pain. Abdomen: Normal diet. No cravings. Normal bowel movements. : Negative. Musculoskeletal: Diffuse joint pain. Skin: Easy bruising. Neurologic: Negative. PHYSICAL EXAMINATION: Temperature 98.8, BP 139/90, pulse 76, respiration 16, sat 100%. HEENT: Mucosa moist. No lesions. No lymphadenopathy. She has pale conjunctivae. Moist oral mucosa. Lungs: Clear to auscultation bilaterally. Heart: Regular rate and rhythm. S1, S2. No murmurs, rubs or gallop. Abdomen: Mild right lower quadrant tenderness. No hepatosplenomegaly, obese. Nodes: No peripheral lymphadenopathy. Extremities: Good pulses x4, warmth to the touch. Neurologic: Grossly nonfocal. Alert and oriented x3, but full exam deferred. DIAGNOSTIC STUDIES/LAB DATA: Labs as noted above. ASSESSMENT AND PLAN: A 52-year-old female who presents with iron deficiency anemia and hemoglobin of 5.9. Differential diagnosis is occult GI loss, not seen on studies done in 2017, she may have chronic iron deficiency from history of heavy menstrual cycles and partial repletion in the past on oral iron and then recurrent iron deficiency anemia from mild negative iron balance. She may have poor absorption, although the celiac testing was negative. It is notable that she has had mild macrocytosis given her CBC in 2011, and she may have congenital component of her anemia and microcytosis. 1. She was given 2 units of packed red blood cells today, which is reasonable given her symptoms. 2. Dr. Arellano has planned to repeat the EGD, no other GI evaluation indicated. 3. Given the severity of iron deficiency, I recommend IV iron, which can be done through the office using Feraheme 510 mg IV x2. We will likely infuse her within the next 2 weeks. 4. Given his history of easy bruising and heavy menstrual cycles, we will send mickey terry as an outpatient. 5. I am hopeful with adequate iron repletion, she would not need additional transfusions or iron in the future. We will need to continue to monitor her over the next 1 to 2 years. [id number]/[facility] #: [id number] HOLLY
[2017-12-24 06:36] LABS: ABS Basophils 0.1 10^3/ul (0-0.2); ABS Eosinophils 0.1 10^3/ul (0-0.6); ABS Lymphocytes 1.8 10^3/ul (1.0-4.8); ABS Monocytes 0.4 10^3/ul (0-0.8); ABS Nucleated RBC 0 10^3/ul; Eosinophil % 1.8 % (0-6); Hematocrit 25 % (35-47); Hemoglobin 8.1 g/dl (12.0-16.0); Lymphocyte % 33.2 % (25-47); Mean Corpuscular HGB Conc 33 g/dl (31-36); Mean Corpuscular Hemoglobin 24 pg (27-31); Mean Corpuscular Volume 72 fL (80-97); Mean Platelet Volume 7.5 um3 (7.4-10.4); Nucleated Red Blood Cells % 0; Platelet Count 331 10^3/ul (150-450); Red Blood Count 3.43 10^6/ul (4.00-5.40); Red Cell Distribution Width 17 % (10.5-15); White Blood Count 5.4 10^3/ul (3.5-10.8)
[2017-12-24 06:51] LABS: EGFR Non-African American 82.7 (>60)
--- NOTE | 2017-12-24 07:56 | PN ---
Subjective Date of Service: 12/24/17 Interval History: patient reports that she is feeling much better today, denies fever or chills, Denies abd pain, n/v/d. Denies chest pain or shortness of breath. Deniesbalck or tarry stools or blood from the rectum Family History: Unchanged from Admission Social History: Unchanged from Admission Past Medical History: Unchanged from Admission Objective Active Medications: Acetaminophen (Tylenol Tab*) 650 mg PO Q6H PRN PRN Reason: pain/fever Sodium Chloride (Ns 0.9% 1000 Ml*) 1,000 mls @ 75 mls/hr IV PER RATE NIKKIE Last Admin: 12/23/17 21:43 Dose: 75 mls/hr Losartan Potassium (Cozaar Tab*) 50 mg PO DAILY [facility] Prochlorperazine Edisylate (Compazine Inj*) 5 mg IV Q6H PRN PRN Reason: NAUSEA/VOMITING Vital Signs - 8 hr 12/24/17 03:28 Temperature 98.4 F Pulse Rate 68 Respiratory 20 Rate Blood Pressure 130/80 (mmHg) O2 Sat by Pulse 100 Oximetry Oxygen Devices in Use Now: None Appearance: alert, pale , no acute distress Eyes: No Scleral Icterus Ears/Nose/Mouth/Throat: Clear Oropharnyx, Mucous Membranes Moist Neck: NL Appearance and Movements; NL JVP, Trachea Midline Respiratory: Symmetrical Chest Expansion and Respiratory Effort, Clear to Auscultation Cardiovascular: NL Sounds; No Murmurs; No JVD, No Edema Abdominal: NL Sounds; No Tenderness; No Distention Extremities: No Edema, No Clubbing, Cyanosis Skin: No Rash or Ulcers Neurological: Alert and Oriented x 3 Nutrition: Taking PO's Result Diagrams: 12/24/17 06:26 12/24/17 06:26 Additional Lab and Data: Lab Results 12/23/17 12/23/17 12/23/17 Range/Units 14:01 14:01 14:01 WBC 5.0 (3.5-10.8) 10^3/ul RBC 2.60 L (4.00-5.40) 10^6/ul Hgb 5.9 L* (12.0-16.0) g/dl Hct 18 L (35-47) % MCV 69 L (80-97) fL MCH 23 L (27-31) pg MCHC 33 (31-36) g/dl RDW 16 H (10.5-15) % Plt Count 334 (150-450) 10^3/ul MPV 7.4 (7.4-10.4) um3 Neut % (Auto) Pending Lymph % (Auto) Pending [place] % (Auto) Pending Eos % (Auto) Pending Baso % (Auto) Pending Absolute Neuts (auto) Pending Absolute Lymphs (auto) Pending Absolute Monos (auto) Pending Absolute Eos (auto) Pending Absolute Basos (auto) Pending Absolute Nucleated RBC Pending Nucleated RBC % Pending INR (Anticoag Therapy) 0.97 (0.77-1.02) APTT 26.5 (26.0-36.3) seconds Sodium 139 (135-145) mmol/L Potassium 3.9 (3.5-5.0) mmol/L Chloride 111 (101-111) mmol/L Carbon Dioxide 22 (22-32) mmol/L Anion Gap 6 (2-11) mmol/L BUN 15 (6-24) mg/dL Creatinine 0.68 (0.51-0.95) mg/dL Est GFR ( Amer) 110.4 (>60) Est GFR (Non-Af Amer) 91.2 (>60) BUN/Creatinine Ratio 22.1 H (8-20) Glucose 102 H (70-100) mg/dL Calcium 8.9 (8.6-10.3) mg/dL Total Bilirubin 0.30 (0.2-1.0) mg/dL AST 14 (13-39) U/L ALT 13 (7-52) U/L Alkaline Phosphatase 64 (34-104) U/L Total Protein 6.3 L (6.4-8.9) g/dL Albumin 4.0 (3.2-5.2) g/dL Globulin 2.3 (2-4) g/dL Albumin/Globulin Ratio 1.7 (1-3) Blood Type Antibody Screen Crossmatch 12/23/17 Range/Units 14:01 WBC (3.5-10.8) 10^3/ul RBC (4.00-5.40) 10^6/ul Hgb (12.0-16.0) g/dl Hct (35-47) % MCV (80-97) fL MCH (27-31) pg MCHC (31-36) g/dl RDW (10.5-15) % Plt Count (150-450) 10^3/ul MPV (7.4-10.4) um3 Neut % (Auto) Lymph % (Auto) [place] % (Auto) Eos % (Auto) Baso % (Auto) Absolute Neuts (auto) Absolute Lymphs (auto) Absolute Monos (auto) Absolute Eos (auto) Absolute Basos (auto) Absolute Nucleated RBC Nucleated RBC % INR (Anticoag Therapy) (0.77-1.02) APTT (26.0-36.3) seconds Sodium (135-145) mmol/L Potassium (3.5-5.0) mmol/L Chloride (101-111) mmol/L Carbon Dioxide (22-32) mmol/L Anion Gap (2-11) mmol/L BUN (6-24) mg/dL Creatinine (0.51-0.95) mg/dL Est GFR ( Amer) (>60) Est GFR (Non-Af Amer) (>60) BUN/Creatinine Ratio (8-20) Glucose (70-100) mg/dL Calcium (8.6-10.3) mg/dL Total Bilirubin (0.2-1.0) mg/dL AST (13-39) U/L ALT (7-52) U/L Alkaline Phosphatase (34-104) U/L Total Protein (6.4-8.9) g/dL Albumin (3.2-5.2) g/dL Globulin (2-4) g/dL Albumin/Globulin Ratio (1-3) Blood Type A Positive Antibody Screen Negative Crossmatch See Detail Microbiology and Other Data: Microbiology 12/23/17 13:51 Stool Occult Blood (ELIDA) - Final Stool Assess/Plan/Problems-Billing Assessment: Ms. Samaniego is a 52 y.o female with a pmhx of anemia and hypertension who presented to the emergency room with weakness and fatigue. Patient was found to be profoundly anemic with a h/h 5. /18. was given 2 units of prbc's - Patient Problems (1) Anemia Status: Acute Code(s): D64.9 - ANEMIA, UNSPECIFIED SNOMED Code(s): 338702064 Comment: - was given 2 units of PRBC's - H/H today - symptoms have improved - Seen by GI- will do outpatient upper endoscopy - Seen by hematology - will need Iron infusion will be set up as an outpatient (2) HTN (hypertension) Status: Acute Code(s): I10 - ESSENTIAL (PRIMARY) HYPERTENSION SNOMED Code(s) : 48807774 Comment: stable continue home medication (3) DVT prophylaxis Status: Acute Code(s): OPQ1136 - SNOMED Code(s): 839442392 Comment: ambulation SCD's (4) Full code status Status: Acute Code(s): Z78.9 - OTHER SPECIFIED HEALTH STATUS SNOMED Code(s) : 790383195 Status and Disposition: discharge home
[2017-12-24] MEDS ORDERED: Losartan TAB* 25 MG PO SCH (09:00)
[2017-12-24 12:29] VITALS: BP 135/73
--- NOTE | 2017-12-24 15:44 | CONS ---
CONSULTATION REPORT: DATE OF CONSULT: 12/24/17 REQUESTING PHYSICIAN: Sujatha Duvall NP INDICATION: Anemia. NARRATIVE: Ms. Samaniego is a pleasant 52-year-old female well known to myself. I have seen her approximately a year ago for iron-deficiency anemia. She underwent an EGD, colonoscopy, and small bowel capsule endoscopy. Colonoscopy was unremarkable. The EGD revealed a large hiatal hernia, but no Willem's erosions were seen. Biopsies were taken to rule out celiac disease, which were negative. H. pylori was negative. She then had a capsule endoscopy, which unfortunately was a poor prep. Images were suboptimal. There did appear to be some potential duodenitis versus ulcers. The patient has been taking NSAIDs for pain. She came to the emergency room last night. Yesterday, she was found to have a hemoglobin of 5.9. She denies any blood in the stool. There is no black or tarry stool. She did have Hemoccult in the emergency room that was normal. PAST MEDICAL HISTORY: 1. Hypertension. 2. Iron-deficiency anemia. 3. Hiatal hernia. PAST SURGICAL HISTORY: Tubal ligation. MEDICATIONS: Include: 1. Naproxen. 2. Irbesartan. 3. Norethindrone. ALLERGIES: PENICILLIN, BACTRIM. FAMILY HISTORY: Coronary artery disease. SOCIAL HISTORY: She denies any tobacco, alcohol, or IV drug use. REVIEW OF SYSTEMS: Twelve systems were reviewed, other than that mentioned in the HPI were unremarkable. PHYSICAL EXAM: Temperature is 98, blood pressure is 135/73, pulse is 81, respiratory rate 16, O2 sat is 99% on room air. General: Well-appearing female in no apparent distress, alert, oriented, pleasant, fluent. HEENT: Mucous membranes are moist without lesions, ulcers, or exudate. Neck is supple. Trachea is midline. Head is normocephalic, atraumatic. Conjunctivae are pale. Heart: Regular rate and rhythm. Lungs: Clear to auscultation. Abdomen: Positive bowel sounds. Soft, nontender, nondistended. No hepatosplenomegaly, masses, rebound, or guarding. LABORATORY DATA: Labs of note, hemoglobin went from 5.9 to 8.1 with 2 units of blood, platelets of 331. INR is 0.97. BUN and creatinine are normal. Her transferrin is 400, her ferritin is 1.8, percent saturation is 3%, iron is less than 15. Albumin is 4.0. ASSESSMENT AND PLAN: Pleasant 52-year-old female with severe iron-deficiency anemia. She has gotten 2 units of blood and has come up to 8.1. She feels well. She does have some family caregiver issues that she needs to try and take care of. Today, I did offer her an upper endoscopy tomorrow. She would prefer to go home and have it done as an outpatient. I can still do it tomorrow as an outpatient, but she would prefer next Monday. I will make arrangements for that. She will also call Dr. Valverde's office to arrange iron infusion tomorrow and she will let us know if she feels anymore weakness, dizziness, or any other changes that I could place for her to be discharged later today. [id number]/[facility] #: [id number] MTDD
--- NOTE | 2017-12-24 23:21 | DS ---
CC: Dr. Edwards; Dr. Arellano; Dr. Valverde * DISCHARGE SUMMARY: DATE OF ADMISSION: 12/23/17 DATE OF DISCHARGE: 12/24/17 PROVIDER: Sujatha Duvall NP ATTENDING PHYSICIAN: Dr. Gaurang Campbell * (dictated by Sujatha Duvall NP). PRIMARY CARE PROVIDER: Dr. William Edwards. PRIMARY DIAGNOSIS: Anemia. SECONDARY DIAGNOSIS: Hypertension. STUDIES COMPLETED WHILE IN THE HOSPITAL: The patient had routine lab work drawn. She had electro-cardiogram, which showed sinus rhythm at a rate of 76. DISCHARGE MEDICATIONS: No new home medications. Discontinued home medication: 1. Naproxen. Continued home medications: 1. Irbesartan 75 mg p.o. daily. 2. Deblitane 1 tab p.o. daily. 3. Acetaminophen 650 mg p.o. q.6 hours as needed for pain. HISTORY OF PRESENT ILLNESS AND HOSPITAL COURSE: Ms. Samaniego is a 52-year-old female who carries a past medical history significant for iron-deficiency anemia and hypertension, postmenopausal, who presented to the emergency room with progressive fatigue and weakness. The patient does report in the summer of the 2016, the patient developed iron-deficiency anemia. She had complaints of shortness of breath and fatigue and saw her primary care provider who referred her for a GI evaluation in October 2016. She had an upper endoscopy, which showed a very large hiatal hernia, but no erosions or other abnormalities. She had a duodenal biopsy that showed no evidence of villous blunting or increased intraepithelial lymphocytes. At the same date, she also had a colonoscopy, which was also normal. As part of the workup, the patient did have a capsule endoscopy in February 2017, although it was poor quality of preparation, it showed only a very small ulcer in the small bowel, unlikely to be contributing to her symptoms. The patient states that with iron supplementation, her numbers improved and she was feeling well, so she did not see a grinder brake lining. Over the past couple of months, she started feeling fatigued and weak again and progressed to the point that she went back to see her primary care provider and was found to be anemic again. She denies any abdominal pain, nausea, vomiting. Denies any signs of bleeding. No black stools. She does take naproxen as an outpatient. She is menopausal and her last period was in April 2017. In the emergency room, she was found to be anemic with hemoglobin of 5.9 and hematocrit of 18 with hypochromia and microcytosis and we were asked to see and evaluate her for admission. While in the hospital, the patient did receive 2 units of packed red blood cells. She had a consultation with Hematology who recommend to do iron infusions as an outpatient, which will be set up for her within the next 2 weeks. She was seen by GI, who recommended upper endoscopy, initially was offered upper endoscopy for tomorrow morning, but the patient declined. The patient was then again offered upper endoscopy as an outpatient tomorrow morning as well and she also declined as she does have caregiver issues at home. The patient will set up for an upper endoscopy next Monday. Dr. Arellano' s office will arrange this as an outpatient. Dr. Arellano felt that the patient was stable enough to be discharged home. While in the hospital, the patient has had no further symptoms of fatigue. The patient states that she is feeling much better after the 2 units of blood. She denies any chest pain or shortness of breath. Denies any fever or chills. At this time, the patient is stable for discharge to home. Ms. Samaniego will be discharged to home today. Vital signs are as follows: Temperature was 98.0, heart rate was 81, respirations 16, O2 saturation was 99% on room air, blood pressure 135/73. DISCHARGE PLAN: Ms. Samaniego will be discharged back home. Activity as tolerated. 1. Anemia. She should follow up with Dr. Valverde for outpatient iron infusions. She will call Dr. Valverde's office on Monday to set up an appointment. She needs to follow up with Gastroenterology. She will follow up with Dr. Arellano next Monday for an upper endoscopy to look for any source of bleeding. The patient was now started on iron p.o. as Dr. Valverde from Hematology has recommended for the patient to receive IV iron infusions for her profound iron-deficiency anemia. I also discussed with Dr. Arellano from Gastroenterology the need for PPI and at this time, we will hold off on starting PPIs as the patient does not have any symptoms of reflux or upper abdominal pain. In previous upper endoscopy, it did not show any gastritis. 2. Hypertension. She should continue on her Irbesartan as previously prescribed. 3. The patient was instructed to return to the emergency room for any chest pain, shortness of breath, any increased weakness or fatigue or any other concerning symptoms such as black and tarry stool, vomiting of blood. The patient was also advised that she needs to discontinue the use of NSAIDs including naproxen, ibuprofen, Advil, or any other NSAID medications. The patient and her verbalized understanding. This is a summarization of her hospitalization. If you need more complete details, please obtain her entire medical record. TIME SPENT: Time spent on this discharge was approximately 60 minutes, greater than half the time was spent with the patient discussing discharge plans and instructions. CONDITION ON DISCHARGE: Stable. SUJATHA DUVALL NP [id number]/[facility] #: [id number] MTDAnaya
== END 2017-12-24 16:28 | disposition home or self-care (01) ==
LOC: ED 13:13 → MEDTELE 15:30
PROVIDERS: ADMIT Internal Medicine; ATTEND Internal Medicine
CPT/HCPCS: 36415; 80048; 80053; 82272; 82607; 82728; 82746; 83540; 83550; 83615; 85025; 85045; 85060; 85610; 85730; 86850; 86900; 86901; 86922; 93005; A9270-GY; P9040

== ENCOUNTER 2019-03-28 15:46 | Emergency (ER) | payer BC, OTHER ==
[2019-03-28 16:03] VITALS: BP 130/90
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
== END 2019-03-28 17:26 | disposition home or self-care (01) ==
LOC: UCEAST 15:46
DX: R07.2 Precordial pain (principal); K44.9 Diaphragmatic hernia without obstruction or gangrene; Z88.0 Allergy status to penicillin; Z88.2 Allergy status to sulfonamides; Z88.1 Allergy status to other antibiotic agents; Z91.018 Allergy to other foods
CPT/HCPCS: 71120; 99211; G0463